=== PATIENT | male | born 1930 | race Caucasian/White ===

== ENCOUNTER 2016-06-09 17:50 | Inpatient (IN) | payer MEDICARE, OTHER ==
[2016-06-09] MEDS ORDERED: Sodium Chloride 0.9% 10 ML Syringe FLUSH PRN (18:06)
[2016-06-09] MEDS ORDERED: Albuterol/Ipratropium 3.0-0.5 MG/3 ML Neb Soln NEB ONE (18:08)
[2016-06-09] MEDS ORDERED: Acetaminophen 325 MG Tab PO ONE (18:09)
[2016-06-09] MEDS: Sodium Chloride 0.9% 1,000 ML IV SCH (18:20)
[2016-06-09] MEDS ORDERED: Levofloxacin/Dextrose 5%-Water 750 MG in Premix Bag 1 BAG IV ONE (19:07)
--- NOTE | 2016-06-09 20:29 | EDM.PDOC ---
ED HISTORY OF PRESENT ILLNESS - General Chief Complaint: Fever Stated Complaint: POST EGD, CONVULSIONS Time Seen by Provider: 06/09/16 18:02 Source of Information: Reports: Patient, Family History Limitations: Reports: No limitations - History of Present Illness INITIAL COMMENTS - FREE TEXT/NARRATIVE: The patient had a bronchoscopy done today at [facility] and he was on his way home. He developed rigors just 10 minutes out of town and shortness of breath with a cough. He said a similar thing happened after a colonoscopy a few years ago. He had a spot on his lung that they were checking out. He has no chest pain, abdominal pain, nausea or vomiting. Timing/Duration: Reports: Minutes: Severity: moderate Improves with: Reports: None Worsens with: Reports: None Associated Symptoms (General): Reports: cough, fever/chills, shortness of breath. Denies: nausea/vomiting - Related Data Allergies/ADRs: Allergies Allergy/AdvReac Type Severity Reaction Status Date / Time ramipril [From Altace] Allergy Cannot Verified 06/09/16 18:00 Remember ticagrelor [From BRILINTA] Allergy Cannot Verified 06/09/16 18:00 Remember Home Meds: Home Meds Armodafinil [Nuvigil] 250 mg PO DAILY 09/02/15 [History] Furosemide [Lasix] 40 mg PO DAILY 09/02/15 [History] Isosorbide Mononitrate [Isosorbide Mononitrate ER] 60 mg PO DAILY 09/02/15 [ History] Levothyroxine [Synthroid] 50 mcg PO ACBREAKFAST 09/02/15 [History] Metoprolol Succinate [Toprol XL] 1 tab PO DAILY 09/02/15 [History] Pravastatin Sodium [Pravachol] 20 mg PO BEDTIME 09/02/15 [History] oxyCODONE HCl/Acetaminophen [Percocet 10-325 mg Tablet] 1 - 2 each PO Q4H PRN # 36 tablet 09/02/15 [Rx] Apixaban [Eliquis] 2.5 mg PO DAILY 10/11/15 [History] Aspirin [Halfprin] 81 mg PO DAILY 10/11/15 [History] FLUoxetine [PROzac] 20 mg PO DAILY 10/11/15 [History] Nitroglycerin 0.4 mg PO BID PRN 10/11/15 [History] amLODIPine [Norvasc] 5 mg PO DAILY 10/11/15 [History] glipiZIDE [Glucotrol] 5 mg PO DAILY 10/11/15 [History] Past Medical History HEENT History: Reports: Hard of hearing Other HEENT History: Wears hearing aids Cardiovascular History: Reports: High cholesterol, Hypertension, [place] Respiratory History: Reports: Sleep apnea Other Respiratory History: Wears CPAP at night Gastrointestinal History: Reports: GERD Genitourinary History: Reports: BPH, Chronic renal insuffiency Other Genitourinary History: pt has 1 kidney Musculoskeletal History: Reports: Osteoarthritis Endocrine/Metabolic History: Reports: Diabetes, type II Oncologic (Cancer) History: 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, Renal - Past Surgical History HEENT Surgical History: Reports: Cataract surgery, Tonsillectomy Cardiovascular Surgical History: Reports: Coronary artery stent Other Cardiovascular Surgeries/Procedures: Stents x4 GI Surgical History: 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, Colostomy, Hernia, abdominal Male Surgical History: Reports: Nephrectomy Neurological Surgical History: Reports: Lumbar spine Musculoskeletal Surgical History: Reports: Knee replacement, Shoulder surgery Other Musculoskeletal Surgeries/Procedures:: Bilateral rotator cuff repair, bilateral knees replaced, back surgery twice Social & Family History - Family History Family Medical History: Noncontributory - Tobacco Use Smoking Status *Q: Former Smoker Years of Tobacco use: 30 Packs/Tins Daily: 1 Used Tobacco, but Quit: Yes Month Tobacco Last Used: 1995 Second Hand Smoke Exposure: No - Caffeine Use Caffeine Use: Reports: Coffee, Soda - Recreational Drug Use Recreational Drug Use: No - Living Situation & Occupation Living situation: Reports: , with spouse Occupation: retired ED ROS GENERAL - Review of Systems Review Of Systems: See Below Constitutional: Reports: fever, chills HEENT: Reports: No symptoms Respiratory: Reports: shortness of breath, cough Cardiovascular: Reports: No symptoms Endocrine: Reports: no symptoms GI/Abdominal: Reports: No symptoms : Reports: no symptoms Musculoskeletal: Reports: no symptoms Skin: Reports: no symptoms Neurological: Reports: no symptoms ED EXAM, GENERAL - Physical Exam Exam: See Below Exam Limited By: No limitations General Appearance: alert, no apparent distress Ears: normal external exam Nose: normal inspection Head: atraumatic, normocephalic Neck: normal inspection Respiratory/Chest: no respiratory distress, rhonchi (mild), wheezing (Moderate) Cardiovascular: regular rate, rhythm, no edema, no murmur GI/Abdominal: soft, non tender, no organomegaly Back Exam: normal inspection Extremities: normal inspection Neurological: alert, oriented, no motor/sensory deficits Course - Vital Signs Last Recorded V/S: Last Vital Signs Temp 100 F 06/09/16 18:21 Pulse 95 06/09/16 18:00 Resp 28 H 06/09/16 18:00 BP 185/135 H 06/09/16 18:00 Pulse Ox 90 L 06/09/16 18:00 - Orders/Labs/Meds Orders: Active Orders 24 hr Category Date Time Status Cardiac Monitoring [RC] . DIRECTED Care 06/09/16 18:07 Active Oxygen Therapy [RC] PRN Care 06/09/16 18:07 Active Peripheral IV Care [RC] . DIRECTED Care 06/09/16 18:07 Active RT Aerosol Therapy [RC] ASDIRECTED Care 06/09/16 18:09 Active Chest 1V Frontal [CR] Stat Exams 06/09/16 18:07 Taken CULTURE BLOOD [BC] Stat Lab 06/09/16 18:30 Received CULTURE BLOOD [BC] Stat Lab 06/09/16 18:40 Received UA W/MICROSCOPIC [URIN] Stat Lab 06/09/16 19:58 Ordered Levofloxacin/Dextrose 5%-Water [Levaquin in D5W 750 MG/ Med 06/09/16 19:07 Active 150 ML] 750 mg Premix Bag 1 bag IV ONETIME Sodium Chloride 0.9% [Normal Saline] 1,000 ml Med 06/09/16 18:15 Active IV ASDIRECTED Sodium Chloride 0.9% [Saline Flush] Med 06/09/16 18:06 Active 10 ml FLUSH ASDIRECTED PRN Blood Culture x2 Reflex Set [OM.PC] Stat Oth 06/09/16 18:08 Ordered Peripheral IV Insertion Adult [OM.PC] Stat Oth 06/09/16 18:06 Ordered Medication Orders Sodium Chloride (Normal Saline) 1,000 mls @ 125 mls/hr IV ASDIRECTED [facility] Last Admin: 06/09/16 18:20 Dose: 125 mls/hr Levofloxacin/Dextrose 750 mg/ (Premix) 150 mls @ 100 mls/hr IV ONETIME ONE Stop: 06/09/16 20:36 Last Admin: 06/09/16 19:14 Dose: 100 mls/hr Sodium Chloride (Saline Flush) 10 ml FLUSH ASDIRECTED PRN PRN Reason: Keep Vein Open Last Admin: 06/09/16 18:23 Dose: 10 ml Labs: Laboratory Tests 06/09/16 06/09/16 06/09/16 Range/Units 18:30 18:50 19:35 WBC 12.43 H (4.23-9.07) K/mm3 RBC 3.10 L (4.63-6.08) M/mm3 Hgb 9.8 L (13.7-17.5) gm/L Hct 30.0 L (40.1-51.0) % MCV 96.8 H (79.0-92.2) fl MCH 31.6 (25.7-32.2) pg MCHC 32.7 (32.2-35.5) g/dl RDW Std Deviation 47.3 H (35.1-43.9) fL Plt Count 152 L (163-337) K/mm3 MPV 10.6 (9.4-12.3) fl Neut % (Auto) 76.0 H (34.0-67.9) % Lymph % (Auto) 13.8 L (21.8-53.1) % [place] % (Auto) 7.9 (5.3-12.2) % Eos % (Auto) 1.9 (0.8-7.0) Baso % (Auto) 0.2 (0.1-1.2) % Neut # 9.44 H (1.78-5.38) K/mm3 Lymph # 1.72 (1.32-3.57) K/mm3 [place] # 0.98 H (0.30-0.82) K/mm3 Eos # 0.24 (0.04-0.54) K/mm3 Baso # 0.02 (0.01-0.08) K/mm3 Sodium 141 (136-145) mEq/L Potassium 5.5 H (3.5-5.1) mEq/L Chloride 109 H (98-107) mEq/L Carbon Dioxide 19 L (21-32) mEq/L Anion Gap 18.5 H (5-15) BUN 53 H (7-18) mg/dL Creatinine 5.8 H (0.7-1.3) mg/dL Est Cr Clr Drug Dosing 9.65 mL/min Estimated GFR (MDRD) 9 (>60) mL/min BUN/Creatinine Ratio 9.1 L (14-18) Glucose 119 H (83-115) mg/dL Lactic Acid 1.4 (0.4-2.0) mmol/L Calcium 7.4 L (8.5-10.1) mg/dL Total Bilirubin 0.2 (0.2-1.0) mg/dL AST 16 (15-37) U/L ALT 17 (16-63) U/L Alkaline Phosphatase 191 H (46-116) U/L Total Protein 7.0 (6.4-8.2) g/dl Albumin 3.0 L (3.4-5.0) g/dl Globulin 4.0 gm/dL Albumin/Globulin Ratio 0.8 L (1-2) Meds: Medications Generic Name Dose Route Start Last Admin Trade Name Freq PRN Reason Stop Dose Admin Sodium Chloride 1,000 mls @ 125 mls/hr 06/09/16 18:15 06/09/16 18:20 Normal Saline IV 125 mls/hr ASDIRECTED STACEY Administration Levofloxacin/Dextrose 750 mg/ 150 mls @ 100 mls/hr 06/09/16 19:07 06/09/16 19 :14 Premix IV 06/09/16 20:36 100 mls/hr ONETIME ONE Administration Sodium Chloride 10 ml 06/09/16 18:06 06/09/16 18:23 Saline Flush FLUSH 10 ml ASDIRECTED PRN Administration Keep Vein Open Discontinued Medications Generic Name Dose Route Start Last Admin Trade Name Freq PRN Reason Stop Dose Admin Acetaminophen 975 mg 06/09/16 18:09 06/09/16 18:21 Tylenol PO 06/09/16 18:10 975 mg NOW ONE Administration Albuterol/Ipratropium 3 ml 06/09/16 18:08 06/09/16 18:36 Duoneb 3.0-0.5 Mg/3 Ml NEB 06/09/16 18:09 3 ml ONETIME ONE Administration - Re-Assessments/Exams Free Text/Narrative Re-Assessment/Exam: 06/09/16 20:34 I ordered oxygen an IV, CXR, labs and blood cultures. His CXR shows a left sided infiltrate. His WBC was 12.43. His Hgb was elevated at 9.8. His creatinine was elevated to 5.8. He normally runs at 4. His lactic acid was normal. I ordered levaquin 750mg IV after the blood cultures. I talked to the patient about admission and if he wanted to go to [place]. He would rather be here. I explained if his kidney function got worse he may need to go to [place] and he and his family understood. I also asked his code status and he wanted everything done. Departure - Departure Time of Disposition: 20:40 Disposition: Admitted As Inpatient 68 Condition: poor Clinical Impression: Kidney disease Pneumonia Qualifiers: Pneumonia type: due to unspecified organism Laterality: left Lung location: upper lobe of lung Qualified Code(s): J18.1 - Lobar pneumonia, unspecified organism Anemia Qualifiers: Anemia type: unspecified type Qualified Code(s): D64.9 - Anemia, unspecified Forms: ED Department Discharge - My Orders Last 24 Hours: My Active Orders 06/09/16 18:06 Sodium Chloride 0.9% [Saline Flush] 10 ml FLUSH ASDIRECTED PRN Peripheral IV Insertion Adult [OM.PC] Stat 06/09/16 18:07 Cardiac Monitoring [RC] . DIRECTED Oxygen Therapy [RC] PRN Peripheral IV Care [RC] . DIRECTED Chest 1V Frontal [CR] Stat 06/09/16 18:08 Blood Culture x2 Reflex Set [OM.PC] Stat 06/09/16 18:09 RT Aerosol Therapy [RC] ASDIRECTED 06/09/16 18:15 Sodium Chloride 0.9% [Normal Saline] 1,000 ml IV ASDIRECTED 06/09/16 18:30 CULTURE BLOOD [BC] Stat 06/09/16 18:40 CULTURE BLOOD [BC] Stat 06/09/16 19:07 Levofloxacin/Dextrose 5%-Water [Levaquin in D5W 750 MG/150 ML] 750 mg Premix Bag 1 bag IV ONETIME 06/09/16 19:58 UA W/MICROSCOPIC [URIN] Stat - Assessment/Plan Last 24 Hours: My Active Orders 06/09/16 18:06 Sodium Chloride 0.9% [Saline Flush] 10 ml FLUSH ASDIRECTED PRN Peripheral IV Insertion Adult [OM.PC] Stat 06/09/16 18:07 Cardiac Monitoring [RC] . DIRECTED Oxygen Therapy [RC] PRN Peripheral IV Care [RC] . DIRECTED Chest 1V Frontal [CR] Stat 06/09/16 18:08 Blood Culture x2 Reflex Set [OM.PC] Stat 06/09/16 18:09 RT Aerosol Therapy [RC] ASDIRECTED 06/09/16 18:15 Sodium Chloride 0.9% [Normal Saline] 1,000 ml IV ASDIRECTED 06/09/16 18:30 CULTURE BLOOD [BC] Stat 06/09/16 18:40 CULTURE BLOOD [BC] Stat 06/09/16 19:07 Levofloxacin/Dextrose 5%-Water [Levaquin in D5W 750 MG/150 ML] 750 mg Premix Bag 1 bag IV ONETIME 06/09/16 19:58 UA W/MICROSCOPIC [URIN] Stat
[2016-06-09] MEDS ORDERED: Acetaminophen/oxyCODONE 325-5 MG Tab PO ONE (20:35)
--- NOTE | 2016-06-09 21:16 | PCM.HP ---
H&P History of Present Illness - General Date of Service: 06/09/16 Admit Problem/Dx: Febrile Illness Source of Information: Patient, Family, Old records, Provider, RN notes reviewed History Limitations: Reports: No limitations - History of Present Illness Initial Comments - Free Text/Narative: This is an 85 yo obese white male with past medical hx/o HTN, HLD, [place], CAD S/p Stent x 4, DARINEL on CPAP, GERD, BPH, CKD, One functional Kidney, OA/DJD, DM2 and Hx/o colon and renal cancer who recently completed bronchoscopy in [facility] and on his way home he developed shills associated with shortness of breath and cough. Patient reports similar presentation a few years ago when he had his colonoscopy. Patient denies any chest or abdominal pain. His initial work up in ED shows a CBC remarkable for WBC 12.43, Hgb 9.8, Hct 30 , and platelet 152. His chemistry is significant for K 5.5, Cl 109, CO2 19, AG 18.5, BUN 53, Cr 5.8, BS 119, Ca 7.4, alk phos 191 and albumin 3. LA is 1.4, CKMB 1.8 and Troponin 0.024. His UA was negative for UTI but 3+ for protein. His CXR shows chronic increased lung markings. Patient was referred to me for PNA and WESLEY. He is full code. - Related Data Allergies/Adverse Reactions: Allergies Allergy/AdvReac Type Severity Reaction Status Date / Time ramipril [From Altace] Allergy Cannot Verified 06/09/16 18:00 Remember ticagrelor [From BRILINTA] Allergy Cannot Verified 06/09/16 18:00 Remember Home Medications: Home Meds Armodafinil [Nuvigil] 250 mg PO DAILY 09/02/15 [History] Furosemide [Lasix] 40 mg PO DAILY 09/02/15 [History] Isosorbide Mononitrate [Isosorbide Mononitrate ER] 60 mg PO DAILY 09/02/15 [ History] Levothyroxine [Synthroid] 50 mcg PO ACBREAKFAST 09/02/15 [History] Metoprolol Succinate [Toprol XL] 1 tab PO DAILY 09/02/15 [History] Pravastatin Sodium [Pravachol] 20 mg PO BEDTIME 09/02/15 [History] oxyCODONE HCl/Acetaminophen [Percocet 10-325 mg Tablet] 1 - 2 each PO Q4H PRN # 36 tablet 09/02/15 [Rx] Apixaban [Eliquis] 2.5 mg PO DAILY 10/11/15 [History] Aspirin [Halfprin] 81 mg PO DAILY 10/11/15 [History] FLUoxetine [PROzac] 20 mg PO DAILY 10/11/15 [History] Nitroglycerin 0.4 mg PO BID PRN 10/11/15 [History] amLODIPine [Norvasc] 5 mg PO DAILY 10/11/15 [History] glipiZIDE [Glucotrol] 5 mg PO DAILY 10/11/15 [History] Albuterol/Ipratropium [DuoNeb 3.0-0.5 MG/3 ML] 1 inhalation INH Q4H PRN [History] Ferrous Sulfate 325 mg PO DAILY 06/10/16 [History] Past Medical History HEENT History: Reports: Hard of hearing Other HEENT History: Wears hearing aids Cardiovascular History: Reports: High cholesterol, Hypertension, [place] Respiratory History: Reports: Sleep apnea Other Respiratory History: Wears CPAP at night Gastrointestinal History: Reports: GERD Genitourinary History: Reports: BPH, Chronic renal insuffiency Other Genitourinary History: pt has 1 kidney Musculoskeletal History: Reports: Osteoarthritis Endocrine/Metabolic History: Reports: Diabetes, type II Oncologic (Cancer) History: 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, Renal - Past Surgical History HEENT Surgical History: Reports: Cataract surgery, Tonsillectomy Cardiovascular Surgical History: Reports: Coronary artery stent Other Cardiovascular Surgeries/Procedures: Stents x4 GI Surgical History: 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, Colostomy, Hernia, abdominal Male Surgical History: Reports: Nephrectomy Neurological Surgical History: Reports: Lumbar spine Musculoskeletal Surgical History: Reports: Knee replacement, Shoulder surgery Other Musculoskeletal Surgeries/Procedures:: Bilateral rotator cuff repair, bilateral knees replaced, back surgery twice Social & Family History - Family History Family Medical History: Noncontributory - Tobacco Use Smoking Status *Q: Former Smoker Years of Tobacco use: 30 Packs/Tins Daily: 1 Used Tobacco, but Quit: Yes Month Tobacco Last Used: 1995 Second Hand Smoke Exposure: No - Caffeine Use Caffeine Use: Reports: Coffee, Soda - Recreational Drug Use Recreational Drug Use: No - Living Situation & Occupation Living situation: Reports: , with spouse Occupation: retired H&P Review of Systems - Review of Systems: Review Of Systems: See Below General: Denies: fever, chills HEENT: Reports: no symptoms Pulmonary: Reports: shortness of breath, cough Cardiovascular: Denies: chest pain, edema Gastrointestinal: Denies: Abdominal pain, Nausea, Vomiting Genitourinary: Reports: no symptoms Musculoskeletal: Reports: no symptoms Skin: Denies: cyanosis, pruritis, rash Psychiatric: Denies: depression, anxiety, hallucinations Neurological: Denies: confusion, weakness Hematologic/Lymphatic: Reports: no symptoms Immunologic: Reports: no symptoms Exam - Exam Exam: See Below - Vital Signs Vital Signs: Last Vital Signs Temp 37.7 C 06/09/16 18:21 Pulse 95 06/09/16 18:00 Resp 28 H 06/09/16 18:00 BP 185/135 H 06/09/16 18:00 Pulse Ox 90 L 06/09/16 18:00 Weight: 113.398 kg - Exam General: alert, oriented, cooperative, mild distress, other (Obese) HEENT: Conjunctiva clear, EACs clear, EOMI, Hearing intact, Mucosa moist & pink , Nares patent, Normal nasal septum, Posterior pharynx clear, Pupils equal, Pupils reactive Neck: supple, trachea midline, 2+ carotid pulse wo bruit, full range of motion, other (short and thick) Lungs: Normal respiratory effort, Decreased breath sounds, Rhonchi, Wheezing Cardiovascular: regular rate, regular rhythm Abdomen: normal bowel sounds, soft. No: organomegaly (Male) Exam: Deferred Rectal (Males) Exam: Deferred Back Exam: normal inspection, decreased range of motion Extremities: normal inspection, normal pulses. No: clubbing, cyanosis, calf tenderness, edema Peripheral Pulses: 2+: dorsalis pedis (L), dorsalis pedis (R) Skin: warm, dry, intact Neuro Extensive - Mental Status: oriented x3, normal cognition, memory intact Neuro Extensive - Motor, Sensory, Reflexes: CN II-XII intact Psychiatric: alert, normal affect, normal mood - Patient Data Result Diagrams: 06/10/16 05:58 06/10/16 05:58 *Q Meaningful Use (ADM) - VTE *Q VTE Criteria *Q: - Stroke *Q Stroke Criteria *Q: - AMI *Q AMI Criteria *Q: Problem List Initiated/Reviewed/Updated: Yes Orders Last 24hrs: Medication Orders Sodium Chloride (Normal Saline) 1,000 mls @ 125 mls/hr IV ASDIRECTED STACEY Last Admin: 06/09/16 18:20 Dose: 125 mls/hr Sodium Chloride (Saline Flush) 10 ml FLUSH ASDIRECTED PRN PRN Reason: Keep Vein Open Last Admin: 06/09/16 18:23 Dose: 10 ml Assessment/Plan Comment:: Assessment/Plan: Acute: Post Bronchoscopy Parenchymal Infiltrate (PNA) - Common in Post-Bronch patient - He just had it done today - CXR shows chronic lung markings - Received IV Levaquin in ED - Will add Zosyn IV q6 for pharmacy to renaly dose - Follow up CXR - Supplemental O2 and Bronchodilators - I am hopeful this will be transient, could not appreciate real pneumonia Fever with Leukocytosis - WBC 12.43 - Likely 2/2 Above - Treat above Anemia of Chronic Disease - Hgb 9.8 - No active bleed - Will monitor Acute on Chronic Kidney Disease - Baseline cr in the 4s, now at 5.8, he is now at stage V - IV Hydration - Monitor renal function - If he gets worse, transfer to [place] Anion Gap-Metabolic Acidosis - 2/2 WESLEY - Treat underlying cause Chronic: HTN HLD CAD S/p stents x 4 DARINEL on CPAP GERD BPH CKD One functional kidney DM2 OA and hx/o Colon and Renal Cancer Obesity with BMI 36 Plan: Admit to Med-Surg Routine AM Labs Resume Some Home Meds PT/OT consult Dietary consult for weight management SW/CM for d/c planning Code status: 1 Additional orders as above Family was informed about our limited resources here in [place]. They were advised he may likely be shipped out if his renal function gets worse.
[2016-06-10] MEDS ORDERED: Promethazine 12.5 MG in Sodium Chloride 0.9% 50 ML IV PRN (01:57)
[2016-06-10] MEDS ORDERED: Bisacodyl 5 MG Tab PO PRN (01:57)
[2016-06-10] MEDS ORDERED: HYDROmorphone 0.5 MG/0.5 ML Syringe IVPUSH PRN (01:57)
[2016-06-10] MEDS ORDERED: Albuterol/Ipratropium 3.0-0.5 MG/3 ML Neb Soln NEB PRN (01:57)
[2016-06-10] MEDS ORDERED: Acetaminophen 325 MG Tab PO PRN (01:57)
[2016-06-10] MEDS ORDERED: Polyethylene Glycol 3350 Powder 17 GM Packet PO PRN (01:57)
[2016-06-10] MEDS ORDERED: Ondansetron 4 MG/2 ML SDV IV PRN (01:57)
[2016-06-10] MEDS ORDERED: Acetaminophen/HYDROcodone 325-5 MG Tab PO PRN (01:57)
[2016-06-10] MEDS ORDERED: Temazepam 15 MG Cap PO PRN (01:57)
[2016-06-10] MEDS ORDERED: OXYCODONE HCL PO PRN (02:02)
[2016-06-10] MEDS ORDERED: ACETAMINOPHEN PO PRN (02:02)
[2016-06-10] MEDS: Sodium Chloride 0.9% 1,000 ML IV SCH ×2 (02:07→18:56)
[2016-06-10] MEDS ORDERED: Piperacillin/Tazobactam 4.5 GM in Sodium Chloride 0.9% 100 ML IV ONE (02:15)
[2016-06-10] MEDS ORDERED: Levofloxacin/Dextrose 5%-Water 750 MG in Premix Bag 1 BAG IV SCH (02:15)
[2016-06-10] MEDS ORDERED: Acetaminophen/oxyCODONE 325-5 MG Tab PO PRN (02:19)
[2016-06-10] MEDS ORDERED: oxyCODONE 5 MG Tab PO PRN (02:21)
[2016-06-10] MEDS: LORazepam 2 MG/ML MDV IV PRN ×3 (02:41→20:08)
[2016-06-10] MEDS ORDERED: Nitroglycerin Lingual Spray 4.9 GM Canister TRLING PRN (02:45)
[2016-06-10] MEDS: Levothyroxine 50 MCG Tab PO SCH (06:43)
--- NOTE | 2016-06-10 06:59 | CR ---
Chest: Portable view of the chest is obtained. Comparison: Previous chest x-ray of 10/28/15. Heart size mildly prominent. Chronic increased lung markings are noted. Possible increased density within the left upper chest seen from prior study as well as within the right lower chest which may represent atelectasis versus several early areas of pneumonia. Lungs otherwise are clear. Bony structures are grossly intact. Impression: 1. Chronic increased lung markings. Possible increased density within the left upper chest and right lower chest from prior chest x-ray either due to atelectasis or early areas of pneumonia if patient has infectious symptoms. Diagnostic code #3
[2016-06-10] MEDS: glipiZIDE 5 MG Tab PO SCH (08:59)
[2016-06-10] MEDS: Metoprolol Succinate 25 MG Tab.ER PO SCH (08:59)
[2016-06-10] MEDS: Ferrous Sulfate 325 MG Tab PO SCH (09:00)
[2016-06-10] MEDS: amLODIPine 5 MG Tab PO SCH (09:00)
[2016-06-10] MEDS ORDERED: Apixaban 2.5 MG Tab PO SCH (09:00)
[2016-06-10] MEDS: Isosorbide Mononitrate 60 MG Tab.ER PO SCH (09:00)
[2016-06-10] MEDS: FLUoxetine 20 MG Cap PO SCH (09:00)
[2016-06-10] MEDS: Aspirin 81 MG Tab.EC PO SCH (09:00)
[2016-06-10] MEDS: Armodafinil [Nuvigil] 250 MG PO SCH (09:01)
--- NOTE | 2016-06-10 09:33 | PCM.PN ---
- General Info Date of Service: 06/10/16 Admission Dx/Problem (Free Text): Febrile Illness Subjective Update: Follow Up Functional Status: Reports: pain controlled, tolerating diet, urinating, new symptoms (did not sleep well overnight) - Review of Systems General: Denies: fever, chills HEENT: Reports: no symptoms Pulmonary: Reports: shortness of breath Cardiovascular: Denies: chest pain Gastrointestinal: Denies: Abdominal pain, Nausea, Vomiting Genitourinary: Reports: no symptoms Musculoskeletal: Reports: no symptoms Skin: Reports: no symptoms Neurological: Denies: confusion, difficulty walking, weakness Psychiatric: Denies: depression, anxiety, hallucinations Systems Review Comment:: No acute issues. He feels better. His WBC is now normal. K is now at 5.1 and Cr is about the same at 5.7. CRP is 4.4. He would like to sleep more today. - Patient Data Vitals - most recent: Last Vital Signs Temp 36.7 C 06/10/16 07:43 Pulse 76 06/10/16 08:59 Resp 24 H 06/10/16 07:43 BP 128/68 06/10/16 09:00 Pulse Ox 97 06/10/16 07:43 Weight - most recent: 113.398 kg I&O - last 24 hours: Intake & Output 06/09/16 06/10/16 06/10/16 22:59 06:59 14:59 Intake Total 1397 Output Total 550 Balance 847 Lab Results last 24 hrs: Laboratory Results - last 24 hr 06/09/16 06/09/16 06/09/16 Range/Units 21:25 23:18 23:18 WBC (4.23-9.07) K/mm3 RBC (4.63-6.08) M/mm3 Hgb (13.7-17.5) gm/L Hct (40.1-51.0) % MCV (79.0-92.2) fl MCH (25.7-32.2) pg MCHC (32.2-35.5) g/dl RDW Std Deviation (35.1-43.9) fL Plt Count (163-337) K/mm3 MPV (9.4-12.3) fl Neut % (Auto) (34.0-67.9) % Lymph % (Auto) (21.8-53.1) % [place] % (Auto) (5.3-12.2) % Eos % (Auto) (0.8-7.0) Baso % (Auto) (0.1-1.2) % Neut # (1.78-5.38) K/mm3 Lymph # (1.32-3.57) K/mm3 [place] # (0.30-0.82) K/mm3 Eos # (0.04-0.54) K/mm3 Baso # (0.01-0.08) K/mm3 Manual Slide Review Sodium (136-145) mEq/L Potassium (3.5-5.1) mEq/L Chloride (98-107) mEq/L Carbon Dioxide (21-32) mEq/L Anion Gap (5-15) BUN (7-18) mg/dL Creatinine (0.7-1.3) mg/dL Est Cr Clr Drug Dosing mL/min Estimated GFR (MDRD) (>60) mL/min BUN/Creatinine Ratio (14-18) Glucose (83-115) mg/dL POC Glucose 92 (83-110) mg/dL Calcium (8.5-10.1) mg/dL Magnesium (1.8-2.4) mg/dl CK-MB (CK-2) 1.8 (0-3.6) ng/ml Troponin I 0.024 (0.00-0.056) ng/mL C-Reactive Protein (<1.0) mg/dL 06/10/16 06/10/16 Range/Units 05:58 05:58 WBC 8.41 (4.23-9.07) K/mm3 RBC 2.45 L (4.63-6.08) M/mm3 Hgb 7.8 L (13.7-17.5) gm/L Hct 24.0 L (40.1-51.0) % MCV 98.0 H (79.0-92.2) fl MCH 31.8 (25.7-32.2) pg MCHC 32.5 (32.2-35.5) g/dl RDW Std Deviation 46.9 H (35.1-43.9) fL Plt Count 121 L (163-337) K/mm3 MPV 10.3 (9.4-12.3) fl Neut % (Auto) 71.6 H (34.0-67.9) % Lymph % (Auto) 15.1 L (21.8-53.1) % [place] % (Auto) 11.5 (5.3-12.2) % Eos % (Auto) 1.4 (0.8-7.0) Baso % (Auto) 0.2 (0.1-1.2) % Neut # 6.01 H (1.78-5.38) K/mm3 Lymph # 1.27 L (1.32-3.57) K/mm3 [place] # 0.97 H (0.30-0.82) K/mm3 Eos # 0.12 (0.04-0.54) K/mm3 Baso # 0.02 (0.01-0.08) K/mm3 Manual Slide Review Abnormal smear Sodium 140 (136-145) mEq/L Potassium 5.1 (3.5-5.1) mEq/L Chloride 109 H (98-107) mEq/L Carbon Dioxide 18 L (21-32) mEq/L Anion Gap 18.1 H (5-15) BUN 49 H (7-18) mg/dL Creatinine 5.7 H (0.7-1.3) mg/dL Est Cr Clr Drug Dosing 9.82 mL/min Estimated GFR (MDRD) 10 (>60) mL/min BUN/Creatinine Ratio 8.6 L (14-18) Glucose 77 L (83-115) mg/dL POC Glucose (83-110) mg/dL Calcium 6.7 L (8.5-10.1) mg/dL Magnesium 1.2 L (1.8-2.4) mg/dl CK-MB (CK-2) (0-3.6) ng/ml Troponin I (0.00-0.056) ng/mL C-Reactive Protein 4.4 H* (<1.0) mg/dL Rl Results last 24 hrs: Microbiology 06/10/16 05:25 Influenza Type A Antigen Screen - Final Nasal, Unspecified NEGATIVE INFLUENZA A VIRUS AG Influenza Type B Antigen Screen - Final NEGATIVE INFLUENZA B VIRUS AG Med Orders - Current: Current Medications Acetaminophen (Tylenol) 650 mg PO Q4H PRN PRN Reason: Pain (Mild 1-3)/fever Acetaminophen/Hydrocodone Bitart ([place] 325-5 Mg) 1 tab PO Q4H PRN PRN Reason: Pain (moderate 4-6) Albuterol/Ipratropium (Duoneb 3.0-0.5 Mg/3 Ml) 3 ml NEB Q4H PRN PRN Reason: Shortness Of Breath/wheezing Amlodipine Besylate (Norvasc) 5 mg PO DAILY [facility] Last Admin: 06/10/16 09:00 Dose: 5 mg Apixaban (Eliquis) 2.5 mg PO DAILY [facility] Aspirin (Halfprin) 81 mg PO DAILY [facility] Last Admin: 06/10/16 09:00 Dose: 81 mg Bisacodyl (Dulcolax) 5 mg PO DAILY PRN PRN Reason: Constipation Ferrous Sulfate (Ferrous Sulfate) 325 mg PO DAILY [facility] Last Admin: 06/10/16 09:00 Dose: 325 mg Fluoxetine HCl (Prozac) 20 mg PO DAILY [facility] Last Admin: 06/10/16 09:00 Dose: 20 mg Glipizide (Glucotrol) 5 mg PO DAILY [facility] Last Admin: 06/10/16 08:59 Dose: 5 mg Hydromorphone HCl (Dilaudid) 0.25 mg IVPUSH Q2H PRN PRN Reason: Pain (severe 7-10) Sodium Chloride (Normal Saline) 1,000 mls @ 125 mls/hr IV ASDIRECTED [facility] Last Admin: 06/10/16 02:07 Dose: 125 mls/hr Promethazine HCl 12.5 mg/ (Sodium Chloride) 50.5 mls @ 100 mls/hr IV Q6H PRN PRN Reason: Nausea/Vomiting Piperacillin Sod/Tazobactam (Sod 4.5 gm/ Sodium Chloride) 100 mls @ 25 mls/hr IV Q12H [facility] Levofloxacin/Dextrose 500 mg/ (Premix) 100 mls @ 100 mls/hr IV Q48H [facility] Isosorbide Mononitrate (Imdur) 60 mg PO DAILY [facility] Last Admin: 06/10/16 09:00 Dose: 60 mg Levothyroxine Sodium (Synthroid) 50 mcg PO ACBREAKFAST [facility] Last Admin: 06/10/16 06:43 Dose: 50 mcg Lorazepam (Ativan) 0.5 mg IV Q6H PRN PRN Reason: Anxiety Last Admin: 06/10/16 02:41 Dose: 0.5 mg Metoprolol Succinate (Toprol Xl) 25 mg PO DAILY [facility] Last Admin: 06/10/16 08:59 Dose: 25 mg Nitroglycerin (Nitrolingual) 0 gm TRLING BID PRN PRN Reason: PAIN Ondansetron HCl (Zofran) 4 mg IV Q6H PRN PRN Reason: Nausea/Vomiting Oxycodone HCl (Oxycodone) 5 - 10 mg PO Q4H PRN PRN Reason: PAIN Oxycodone/Acetaminophen (Percocet 325-5 Mg) 1 - 2 tab PO Q4H PRN PRN Reason: PAIN Armodafinil [Nuvigil (] 250 Mg) 0 each PO DAILY [facility] Last Admin: 06/10/16 09:01 Dose: Not Given Polyethylene Glycol (Miralax) 17 gm PO DAILY PRN PRN Reason: Constipation Senna/Docusate Sodium (Senna Plus) 1 tab PO BID PRN PRN Reason: Constipation Simvastatin (Zocor) 10 mg PO BEDTIME [facility] Sodium Chloride (Saline Flush) 10 ml FLUSH ASDIRECTED PRN PRN Reason: Keep Vein Open Last Admin: 06/09/16 18:23 Dose: 10 ml Temazepam (Restoril) 7.5 mg PO BEDTIME PRN PRN Reason: Sleep Discontinued Medications Acetaminophen (Tylenol) 975 mg PO NOW ONE Stop: 06/09/16 18:10 Last Admin: 06/09/16 18:21 Dose: 975 mg Albuterol/Ipratropium (Duoneb 3.0-0.5 Mg/3 Ml) 3 ml NEB ONETIME ONE Stop: 06/09/16 18:09 Last Admin: 06/09/16 18:36 Dose: 3 ml Levofloxacin/Dextrose 750 mg/ (Premix) 150 mls @ 100 mls/hr IV ONETIME ONE Stop: 06/09/16 20:36 Last Admin: 06/09/16 19:14 Dose: 100 mls/hr Piperacillin Sod/Tazobactam (Sod 4.5 gm/ Sodium Chloride) 100 mls @ 200 mls/hr IV ONETIME ONE Stop: 06/10/16 02:44 Last Admin: 06/10/16 02:33 Dose: 200 mls/hr Non-Formulary Medication (Oxycodone Hcl/Acetaminophen) 1 - 2 each PO Q4H PRN PRN Reason: severe pain relief. Oxycodone/Acetaminophen (Percocet 325-5 Mg) 1 tab PO ONETIME ONE Stop: 06/09/16 20:36 Last Admin: 06/09/16 20:38 Dose: 1 tab - Exam Quality Assessment: supplemental oxygen General: alert, oriented, cooperative, no acute distress, other (Obese) HEENT: Pupils equal, Pupils reactive, EOMI, Mucous membr. moist/pink Neck: supple, trachea midline, no JVD, other (short and thick) Lungs: Rhonchi, Wheezing Cardiovascular: regular rate, regular rhythm Abdomen: bowel sounds present, soft, no tenderness, no distension, other (Obese) (Male) Exam: Deferred Back Exam: normal inspection, decreased range of motion Extremities: no edema, normal pulses, no tenderness/swelling, no clubbing, no cyanosis, no calf tenderness Peripheral Pulses: 2+: dorsalis pedis (L), dorsalis pedis (R) Skin: warm, dry, intact Neurological: no new focal deficit Psy/Mental Status: alert, normal affect, normal mood - Problem List Review Problem List Initiated/Reviewed/Updated: Yes - My Orders Last 24 Hours: My Active Orders 06/10/16 01:57 Height and Weight [RC] 04 Up With Assistance [RC] BID Up ad [place] [RC] BID Acetaminophen [Tylenol] 650 mg PO Q4H PRN Acetaminophen/HYDROcodone [[place] 325-5 MG] 1 tab PO Q4H PRN Albuterol/Ipratropium [DuoNeb 3.0-0.5 MG/3 ML] 3 ml NEB Q4H PRN Bisacodyl [Dulcolax] 5 mg PO DAILY PRN Docusate Sodium/Sennosides [Senna Plus] 1 tab PO BID PRN HYDROmorphone [Dilaudid] 0.25 mg IVPUSH Q2H PRN LORazepam [Ativan] 0.5 mg IV Q6H PRN Ondansetron [Zofran] 4 mg IV Q6H PRN Polyethylene Glycol 3350 [MiraLAX] 17 gm PO DAILY PRN Promethazine [Phenergan] 12.5 mg Sodium Chloride 0.9% [Normal Saline] 50 ml IV Q6H Temazepam [Restoril] 7.5 mg PO BEDTIME PRN Resuscitation Status Routine 06/10/16 01:58 Intake and Output [RC] 04,16 VTE/DVT Education [RC] PER UNIT ROUTINE Vital Signs [RC] Q4HR Sequential Compression Device [OM.PC] Per Unit Routine 06/10/16 01:59 Antiembolic Devices [RC] 10,06/10/16 02:00 Consult to Case Management [CONS] Routine Consult to Checker/Stocker [CONS] Routine OT Evaluation and Treatment [CONS] Routine PT Evaluation and Treatment [CONS] Routine Respiratory Care Assess and Treatment [CONS] Routine 06/10/16 02:19 Acetaminophen/oxyCODONE [Percocet 325-5 MG] 1 - 2 tab PO Q4H PRN 06/10/16 02:21 oxyCODONE 5 - 10 mg PO Q4H PRN 06/10/16 02:45 Nitroglycerin [Nitrolingual] 0 gm TRLING BID PRN 06/10/16 06:00 Levothyroxine [Synthroid] 50 mcg PO ACBREAKFAST 06/10/16 09:00 Apixaban [Eliquis] 2.5 mg PO DAILY Aspirin [Halfprin] 81 mg PO DAILY FLUoxetine [PROzac] 20 mg PO DAILY Ferrous Sulfate 325 mg PO DAILY Isosorbide Mononitrate [Imdur] 60 mg PO DAILY Metoprolol Succinate [Toprol XL] 25 mg PO DAILY Patient's Own Medication [Ptom] 0 each PO DAILY amLODIPine [Norvasc] 5 mg PO DAILY glipiZIDE [Glucotrol] 5 mg PO DAILY 06/10/16 14:00 Piperacillin/Tazobactam [Zosyn] 4.5 gm Sodium Chloride 0.9% [Normal Saline] 100 ml IV Q12H 06/10/16 21:00 Simvastatin [Zocor] 10 mg PO BEDTIME 06/10/16 Breakfast Consistent Carbohydrate Diet [DIET] 06/11/16 05:11 BASIC METABOLIC PANEL,BMP [CHEM] AM C-REACTIVE PROTEIN [CHEM] AM CBC WITH AUTO DIFF [HEME] AM MAGNESIUM [CHEM] AM 06/11/16 19:00 Levofloxacin/Dextrose 5%-Water [Levaquin in D5W 500 MG/100 ML] 500 mg Premix Bag 1 bag IV Q48H 06/12/16 05:11 BASIC METABOLIC PANEL,BMP [CHEM] AM C-REACTIVE PROTEIN [CHEM] AM CBC WITH AUTO DIFF [HEME] AM MAGNESIUM [CHEM] AM 06/13/16 05:11 BASIC METABOLIC PANEL,BMP [CHEM] AM C-REACTIVE PROTEIN [CHEM] AM CBC WITH AUTO DIFF [HEME] AM MAGNESIUM [CHEM] AM 06/14/16 05:11 BASIC METABOLIC PANEL,BMP [CHEM] AM C-REACTIVE PROTEIN [CHEM] AM CBC WITH AUTO DIFF [HEME] AM MAGNESIUM [CHEM] AM 06/15/16 05:11 BASIC METABOLIC PANEL,BMP [CHEM] AM C-REACTIVE PROTEIN [CHEM] AM CBC WITH AUTO DIFF [HEME] AM MAGNESIUM [CHEM] AM 06/16/16 05:11 C-REACTIVE PROTEIN [CHEM] AM - Plan Plan:: Assessment/Plan: Acute: Post Bronchoscopy Parenchymal Infiltrate/Inflammation - Common in Post-Bronch patient - He just had it done today - CXR shows chronic lung markings - Continue: IV Levaquin and Zosyn - Follow up CXR - Supplemental O2 and Bronchodilators Anemia of Chronic Disease - Hgb 9.8 ---> 7.8 (possibly hemodilution) - No active bleed - Will repeat lab this afternoon Acute on Chronic Kidney Disease - Baseline cr in the 4s, now at 5.8, he is now at stage V---> stable at 5.7 - IV Hydration - Stable renal function, no need to transfer him at this time Anion Gap-Metabolic Acidosis - 2/2 [place] - Treat underlying cause Resolved: S/p Fever with Leukocytosis - WBC 12.43 ---> 8.41 - Likely 2/2 Above - Treat above Chronic: HTN HLD CAD S/p stents x 4 DARINEL on CPAP GERD BPH CKD One functional kidney DM2 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
[2016-06-10] MEDS: Apixaban 5 MG Tab PO SCH (11:27)
[2016-06-10] MEDS: Temazepam 7.5 MG Cap PO PRN ×2 (12:40→20:08)
[2016-06-10] MEDS: Piperacillin/Tazobactam 4.5 GM in Sodium Chloride 0.9% 100 ML IV SCH ×2 (12:47→13:29)
[2016-06-10] MEDS: Simvastatin 10 MG Tab PO SCH (20:07)
[2016-06-10] MEDS ORDERED: Non-Formulary Medication 1 Each (Pravastatin Sodium 20 MG) PO SCH (21:00)
[2016-06-11] MEDS: Piperacillin/Tazobactam 4.5 GM in Sodium Chloride 0.9% 100 ML IV SCH ×2 (02:17→14:21)
[2016-06-11] MEDS: Levothyroxine 50 MCG Tab PO SCH (06:19)
--- NOTE | 2016-06-11 07:43 | PCM.PN ---
- General Info Date of Service: 06/11/16 Admission Dx/Problem (Free Text): Febrile Illness Subjective Update: Follow Up Functional Status: Reports: pain controlled, tolerating diet, ambulating, urinating. Denies: new symptoms - Review of Systems General: Denies: fever, weakness, fatigue, malaise HEENT: Reports: no symptoms Pulmonary: Denies: shortness of breath Cardiovascular: Denies: chest pain, palpitations, dyspnea on exertion, edema Gastrointestinal: Denies: Abdominal pain, Nausea, Vomiting Genitourinary: Reports: no symptoms Musculoskeletal: Reports: no symptoms Skin: Reports: no symptoms Neurological: Denies: confusion, dizziness, difficulty walking, weakness, gait disturbance Psychiatric: Denies: depression, anxiety, hallucinations Systems Review Comment:: No overnight issues. He feels pretty good. He slept okay. His Hgb is 7.9 this am. No active bleed. His K is now 5.3, Mg is 1.3 and Cr is now at 5.6. He has no new complaints. He is afebrile w/o leukocytosis. - Patient Data Vitals - most recent: Last Vital Signs Temp 36.6 C 06/11/16 03:38 Pulse 72 06/11/16 03:38 Resp 24 H 06/11/16 03:38 BP 172/84 H 06/11/16 03:38 Pulse Ox 97 06/11/16 03:38 Weight - most recent: 66.95 kg I&O - last 24 hours: Intake & Output 06/10/16 06/11/16 06/11/16 22:59 06:59 14:59 Intake Total 1850 1400 Output Total 1350 1950 Balance 500 -550 Lab Results last 24 hrs: Laboratory Results - last 24 hr 06/10/16 06/11/16 06/11/16 Range/Units 13:30 05:07 05:07 WBC 7.67 6.92 (4.23-9.07) K/mm3 RBC 2.48 L 2.48 L (4.63-6.08) M/mm3 Hgb 8.0 L 7.9 L (13.7-17.5) gm/L Hct 24.5 L 24.4 L (40.1-51.0) % MCV 98.8 H 98.4 H (79.0-92.2) fl MCH 32.3 H 31.9 (25.7-32.2) pg MCHC 32.7 32.4 (32.2-35.5) g/dl RDW Std Deviation 47.5 H 47.1 H (35.1-43.9) fL Plt Count 116 L 116 L (163-337) K/mm3 MPV 9.8 10.7 (9.4-12.3) fl Neut % (Auto) 69.7 H 67.4 (34.0-67.9) % Lymph % (Auto) 15.3 L 15.9 L (21.8-53.1) % [place] % (Auto) 12.5 H 13.2 H (5.3-12.2) % Eos % (Auto) 2.1 3.3 (0.8-7.0) Baso % (Auto) 0.3 0.1 (0.1-1.2) % Neut # 5.35 4.66 (1.78-5.38) K/mm3 Lymph # 1.17 L 1.10 L (1.32-3.57) K/mm3 [place] # 0.96 H 0.91 H (0.30-0.82) K/mm3 Eos # 0.16 0.23 (0.04-0.54) K/mm3 Baso # 0.02 0.01 (0.01-0.08) K/mm3 Manual Slide Review Abnormal smear Sodium 140 (136-145) mEq/L Potassium 5.3 H (3.5-5.1) mEq/L Chloride 110 H (98-107) mEq/L Carbon Dioxide 16 L (21-32) mEq/L Anion Gap 19.3 H (5-15) BUN 55 H (7-18) mg/dL Creatinine 5.6 H (0.7-1.3) mg/dL Est Cr Clr Drug Dosing 9.46 mL/min Estimated GFR (MDRD) 10 (>60) mL/min BUN/Creatinine Ratio 9.8 L (14-18) Glucose 71 L (83-115) mg/dL Calcium 7.0 L (8.5-10.1) mg/dL Magnesium 1.3 L (1.8-2.4) mg/dl C-Reactive Protein 8.7 H* (<1.0) mg/dL Rl Results last 24 hrs: Microbiology 06/10/16 05:25 Influenza Type A Antigen Screen - Final Nasal, Unspecified NEGATIVE INFLUENZA A VIRUS AG Influenza Type B Antigen Screen - Final NEGATIVE INFLUENZA B VIRUS AG Med Orders - Current: Current Medications Acetaminophen (Tylenol) 650 mg PO Q4H PRN PRN Reason: Pain (Mild 1-3)/fever Acetaminophen/Hydrocodone Bitart ([place] 325-5 Mg) 1 tab PO Q4H PRN PRN Reason: Pain (moderate 4-6) Albuterol/Ipratropium (Duoneb 3.0-0.5 Mg/3 Ml) 3 ml NEB Q4H PRN PRN Reason: Shortness Of Breath/wheezing Amlodipine Besylate (Norvasc) 5 mg PO DAILY [facility] Last Admin: 06/10/16 09:00 Dose: 5 mg Apixaban (Eliquis) 2.5 mg PO DAILY [facility] Last Admin: 06/10/16 11:27 Dose: 2.5 mg Aspirin (Halfprin) 81 mg PO DAILY [facility] Last Admin: 06/10/16 09:00 Dose: 81 mg Bisacodyl (Dulcolax) 5 mg PO DAILY PRN PRN Reason: Constipation Dexamethasone (Dexamethasone) 4 mg PO ONETIME ONE Stop: 06/11/16 07:42 Diphenhydramine HCl (Benadryl) 25 mg IVPUSH ONETIME ONE Stop: 06/11/16 07:41 Ferrous Sulfate (Ferrous Sulfate) 325 mg PO DAILY [facility] Last Admin: 06/10/16 09:00 Dose: 325 mg Fluoxetine HCl (Prozac) 20 mg PO DAILY [facility] Last Admin: 06/10/16 09:00 Dose: 20 mg Glipizide (Glucotrol) 5 mg PO DAILY [facility] Last Admin: 06/10/16 08:59 Dose: 5 mg Hydromorphone HCl (Dilaudid) 0.25 mg IVPUSH Q2H PRN PRN Reason: Pain (severe 7-10) Promethazine HCl 12.5 mg/ (Sodium Chloride) 50.5 mls @ 100 mls/hr IV Q6H PRN PRN Reason: Nausea/Vomiting Piperacillin Sod/Tazobactam (Sod 4.5 gm/ Sodium Chloride) 100 mls @ 25 mls/hr IV Q12H [facility] Last Admin: 06/11/16 02:17 Dose: 25 mls/hr Levofloxacin/Dextrose 500 mg/ (Premix) 100 mls @ 100 mls/hr IV Q48H [facility] Sodium Chloride (Normal Saline) 1,000 mls @ 50 mls/hr IV ASDIRECTED [facility] Last Admin: 06/10/16 18:56 Dose: 50 mls/hr Iron Sucrose 200 mg/ Sodium (Chloride) 260 mls @ 83 mls/hr IV ONETIME ONE Stop: 06/11/16 10:47 Isosorbide Mononitrate (Imdur) 60 mg PO DAILY [facility] Last Admin: 06/10/16 09:00 Dose: 60 mg Levothyroxine Sodium (Synthroid) 50 mcg PO ACBREAKFAST [facility] Last Admin: 06/11/16 06:19 Dose: 50 mcg Lorazepam (Ativan) 0.5 mg IV Q6H PRN PRN Reason: Anxiety Last Admin: 06/10/16 20:08 Dose: 0.5 mg Magnesium Sulfate (Pharmacy To Dose - Magnesium Replacement) 1 dose .XX ASDIRECTED [facility] Metoprolol Succinate (Toprol Xl) 25 mg PO DAILY [facility] Last Admin: 06/10/16 08:59 Dose: 25 mg Nitroglycerin (Nitrolingual) 0 gm TRLING BID PRN PRN Reason: PAIN Ondansetron HCl (Zofran) 4 mg IV Q6H PRN PRN Reason: Nausea/Vomiting Oxycodone HCl (Oxycodone) 5 - 10 mg PO Q4H PRN PRN Reason: PAIN Oxycodone/Acetaminophen (Percocet 325-5 Mg) 1 - 2 tab PO Q4H PRN PRN Reason: PAIN Armodafinil [Nuvigil (] 250 Mg) 0 each PO DAILY [facility] Last Admin: 06/10/16 09:01 Dose: Not Given Polyethylene Glycol (Miralax) 17 gm PO DAILY PRN PRN Reason: Constipation Potassium Chloride (Pharmacy To Dose - Potassium Replacement) 1 dose .XX ASDIRECTED [facility] Senna/Docusate Sodium (Senna Plus) 1 tab PO BID PRN PRN Reason: Constipation Simvastatin (Zocor) 10 mg PO BEDTIME [facility] Last Admin: 06/10/16 20:07 Dose: 10 mg Sodium Chloride (Saline Flush) 10 ml FLUSH ASDIRECTED PRN PRN Reason: Keep Vein Open Last Admin: 06/09/16 18:23 Dose: 10 ml Temazepam (Restoril) 7.5 mg PO BEDTIME PRN PRN Reason: Sleep Last Admin: 06/10/16 20:08 Dose: 7.5 mg Discontinued Medications Acetaminophen (Tylenol) 975 mg PO NOW ONE Stop: 06/09/16 18:10 Last Admin: 06/09/16 18:21 Dose: 975 mg Albuterol/Ipratropium (Duoneb 3.0-0.5 Mg/3 Ml) 3 ml NEB ONETIME ONE Stop: 06/09/16 18:09 Last Admin: 06/09/16 18:36 Dose: 3 ml Apixaban (Eliquis) 2.5 mg PO DAILY [facility] Last Admin: 06/10/16 11:27 Dose: Not Given Sodium Chloride (Normal Saline) 1,000 mls @ 125 mls/hr IV ASDIRECTED [facility] Last Admin: 06/10/16 02:07 Dose: 125 mls/hr Levofloxacin/Dextrose 750 mg/ (Premix) 150 mls @ 100 mls/hr IV ONETIME ONE Stop: 06/09/16 20:36 Last Admin: 06/09/16 19:14 Dose: 100 mls/hr Piperacillin Sod/Tazobactam (Sod 4.5 gm/ Sodium Chloride) 100 mls @ 200 mls/hr IV ONETIME ONE Stop: 06/10/16 02:44 Last Admin: 06/10/16 02:33 Dose: 200 mls/hr Non-Formulary Medication (Oxycodone Hcl/Acetaminophen) 1 - 2 each PO Q4H PRN PRN Reason: severe pain relief. Oxycodone/Acetaminophen (Percocet 325-5 Mg) 1 tab PO ONETIME ONE Stop: 06/09/16 20:36 Last Admin: 06/09/16 20:38 Dose: 1 tab Temazepam (Restoril) 7.5 mg PO BEDTIME PRN PRN Reason: Sleep - Exam Quality Assessment: No: supplemental oxygen General: alert, oriented, cooperative, no acute distress, other (Obese) HEENT: Pupils equal, Pupils reactive, EOMI, Mucous membr. moist/pink Neck: supple, trachea midline, no JVD, no thyromegaly Lungs: Normal respiratory effort, Decreased breath sounds, Crackles Cardiovascular: regular rate, regular rhythm Abdomen: bowel sounds present, no tenderness, no distension, other (Obese) (Male) Exam: Deferred Back Exam: normal inspection, decreased range of motion Extremities: no edema, normal pulses, no tenderness/swelling, no clubbing, no cyanosis, no calf tenderness Peripheral Pulses: 2+: dorsalis pedis (L), dorsalis pedis (R) Skin: warm, dry, intact Neurological: no new focal deficit Psy/Mental Status: alert, normal affect, normal mood - Problem List Review Problem List Initiated/Reviewed/Updated: Yes - My Orders Last 24 Hours: My Active Orders 06/10/16 09:00 Aspirin [Halfprin] 81 mg PO DAILY FLUoxetine [PROzac] 20 mg PO DAILY Ferrous Sulfate 325 mg PO DAILY Isosorbide Mononitrate [Imdur] 60 mg PO DAILY Metoprolol Succinate [Toprol XL] 25 mg PO DAILY Patient's Own Medication [Ptom] 0 each PO DAILY amLODIPine [Norvasc] 5 mg PO DAILY glipiZIDE [Glucotrol] 5 mg PO DAILY 06/10/16 11:00 Apixaban [Eliquis] 2.5 mg PO DAILY 06/10/16 12:27 Temazepam [Restoril] 7.5 mg PO BEDTIME PRN 06/10/16 14:00 Piperacillin/Tazobactam [Zosyn] 4.5 gm Sodium Chloride 0.9% [Normal Saline] 100 ml IV Q12H 06/10/16 17:45 Sodium Chloride 0.9% [Normal Saline] 1,000 ml IV ASDIRECTED 06/10/16 21:00 Simvastatin [Zocor] 10 mg PO BEDTIME 06/10/16 Breakfast Consistent Carbohydrate Diet [DIET] 06/11/16 07:40 Iron Sucrose Complex [Venofer] 200 mg Sodium Chloride 0.9% [Normal Saline] 250 ml IV ONETIME diphenhydrAMINE [Benadryl] 25 mg IVPUSH ONETIME ONE 06/11/16 07:41 Dexamethasone 4 mg PO ONETIME ONE 06/11/16 07:45 Magnesium Rep Pharmacy to Dose [Pharmacy to Dose - Magnesium Replacement] 1 dose .XX ASDIRECTED Potassium Rep Pharmacy to Dose [Pharmacy to Dose - Potassium Replacement] 1 dose .XX ASDIRECTED Sodium Chloride 0.9% [Normal Saline] 250 ml IV ASDIRECTED 06/11/16 19:00 Levofloxacin/Dextrose 5%-Water [Levaquin in D5W 500 MG/100 ML] 500 mg Premix Bag 1 bag IV Q48H 06/12/16 05:11 BASIC METABOLIC PANEL,BMP [CHEM] AM C-REACTIVE PROTEIN [CHEM] AM CBC WITH AUTO DIFF [HEME] AM MAGNESIUM [CHEM] AM 06/13/16 05:11 BASIC METABOLIC PANEL,BMP [CHEM] AM C-REACTIVE PROTEIN [CHEM] AM CBC WITH AUTO DIFF [HEME] AM MAGNESIUM [CHEM] AM 06/14/16 05:11 BASIC METABOLIC PANEL,BMP [CHEM] AM C-REACTIVE PROTEIN [CHEM] AM CBC WITH AUTO DIFF [HEME] AM MAGNESIUM [CHEM] AM 06/15/16 05:11 BASIC METABOLIC PANEL,BMP [CHEM] AM C-REACTIVE PROTEIN [CHEM] AM CBC WITH AUTO DIFF [HEME] AM MAGNESIUM [CHEM] AM 06/16/16 05:11 C-REACTIVE PROTEIN [CHEM] AM - Plan Plan:: Assessment/Plan: Acute: Post Bronchoscopy Parenchymal Infiltrate/Inflammation, Continue to improve - Common in Post-Bronch patient - He just had it done today - CXR shows chronic lung markings - Continue: IV Levaquin and Zosyn - Follow up CXR in am - Supplemental O2 and Bronchodilators Anemia of Chronic Disease - Hgb 9.8 ---> 7.9 - No active bleed - Iron Infusion x1 - Repeat lab this afternoon Acute on Chronic Kidney Disease - Baseline cr in the 4s, now at 5.8, he is now at stage V---> stable at 5.6 - IV Hydration - Stable renal function, no need to transfer him at this time Anion Gap-Metabolic Acidosis, Improving - 2/2 [facility] - Treat underlying cause Resolved: S/p Fever with Leukocytosis - WBC 12.43 ---> 8.41 - Likely 2/2 Above - Treat above Chronic: HTN HLD CAD S/p stents x 4 DARINEL on CPAP GERD BPH CKD One functional kidney DM2 OA and hx/o Colon and Renal Cancer Obesity with BMI 36 Plan: He is clinically stable He appears to be responding to treatment Routine AM Labs 250cc bolus NS x 1 Bumex 0.5 mg IVP x1 for fine crackles Dietary consult for weight management SW/CM for d/c planning Code status: 1 Additional orders as above Possible d/c in am
[2016-06-11] MEDS ORDERED: Sodium Chloride 0.9% 250 ML IV SCH (07:45)
[2016-06-11] MEDS: FLUoxetine 20 MG Cap PO SCH (08:14)
[2016-06-11] MEDS: Apixaban 5 MG Tab PO SCH (08:14)
[2016-06-11] MEDS: glipiZIDE 5 MG Tab PO SCH (08:14)
[2016-06-11] MEDS: amLODIPine 5 MG Tab PO SCH (08:15)
[2016-06-11] MEDS: Isosorbide Mononitrate 60 MG Tab.ER PO SCH (08:15)
[2016-06-11] MEDS ORDERED: Magnesium Sulfate/Water 2 GM in Premix Bag 1 BAG IV ONE (08:15)
[2016-06-11] MEDS: Metoprolol Succinate 25 MG Tab.ER PO SCH (08:15)
[2016-06-11] MEDS: Armodafinil [Nuvigil] 250 MG PO SCH (08:15)
[2016-06-11] MEDS: Ferrous Sulfate 325 MG Tab PO SCH (08:16)
[2016-06-11] MEDS: Aspirin 81 MG Tab.EC PO SCH (08:16)
[2016-06-11] MEDS ORDERED: LORazepam 2 MG/ML MDV IV PRN (09:24)
[2016-06-11] MEDS ORDERED: Temazepam 7.5 MG Cap PO PRN (09:24)
[2016-06-11] MEDS ORDERED: LORazepam 2 MG/ML MDV IVPUSH PRN (09:25)
[2016-06-11] MEDS ORDERED: Dexamethasone 4 MG Tab PO ONE (09:30)
[2016-06-11] MEDS ORDERED: diphenhydrAMINE 50 MG/ML SDV IVPUSH ONE (09:45)
[2016-06-11] MEDS ORDERED: Bumetanide 1 MG/4 ML MDV IVPUSH ONE (10:12)
[2016-06-11] MEDS: Sodium Chloride 0.9% 1,000 ML IV SCH (14:22)
[2016-06-11] MEDS ORDERED: Calcium Carbonate 500 MG Tab.Chew PO ONE (16:37)
[2016-06-11] MEDS ORDERED: Levofloxacin/Dextrose 5%-Water 500 MG in Premix Bag 1 BAG IV SCH (19:00)
[2016-06-11] MEDS: Simvastatin 10 MG Tab PO SCH ×2 (19:46→21:07)
--- NOTE | 2016-06-12 00:22 | PCM.DCSUM1 ---
Discharge Summary - Hospital Course Brief History: This is an 85 yo obese white male with past medical hx/o HTN, HLD , AL, CAD S/p Stent x 4, DARINEL on CPAP, GERD, BPH, CKD, One functional Kidney, OA/ DJD, DM2 and Hx/o colon and renal cancer who recently completed bronchoscopy in [facility] and on his way home he developed chills associated with shortness of breath and cough. Patient reports similar presentation a few years ago when he had his colonoscopy. Patient denies any chest or abdominal pain. His initial work up in ED shows a CBC remarkable for WBC 12.43, Hgb 9.8, Hct 30 , and platelet 152. His chemistry is significant for K 5.5, Cl 109, CO2 19, AG 18.5, BUN 53, Cr 5.8, BS 119, Ca 7.4, alk phos 191 and albumin 3. LA is 1.4, CKMB 1.8 and Troponin 0.024. His UA was negative for UTI but 3+ for protein. His CXR shows chronic increased lung markings. - Discharge Data Discharge Date: 06/12/16 Discharge Disposition: Home, Self-Care 01 Condition: Good - Discharge Diagnosis/Problem(s) (1) Pulmonary infiltrate SNOMED Code(s): 375576104 ICD Code: R91.8 - OTHER NONSPECIFIC ABNORMAL FINDING OF LUNG FIELD Status: Acute (2) Anemia of chronic disease SNOMED Code(s): 972906087 ICD Code: D63.8 - ANEMIA IN OTHER CHRONIC DISEASES CLASSIFIED ELSEWHERE Status: Chronic (3) Metabolic acidosis, increased anion gap (IAG) SNOMED Code(s): 28271162 ICD Code: E87.2 - ACIDOSIS Status: Resolved (4) Acute kidney injury superimposed on chronic kidney disease SNOMED Code(s): 10661735 ICD Code: N17.9 - ACUTE KIDNEY FAILURE, UNSPECIFIED; N18.9 - CHRONIC KIDNEY DISEASE, UNSPECIFIED Status: Acute (5) Febrile illness, acute SNOMED Code(s): 407680450 ICD Code: R50.9 - FEVER, UNSPECIFIED Status: Acute (6) Status post bronchoscopy SNOMED Code(s): 289899852 ICD Code: Z98.890 - OTHER SPECIFIED POSTPROCEDURAL STATES Status: Inactive - Patient Summary/Data Operative Procedure(s) Performed: None Complications: None Consults: Consultations 06/10/16 02:00 Consult to Case Management [CONS] Routine Consult to Conduit Bender [CONS] Routine OT Evaluation and Treatment [CONS] Routine PT Evaluation and Treatment [CONS] Routine Respiratory Care Assess and Treatment [CONS] Routine Hospital Course: Patient was primarily admitted for medical management of fever and pulmonary infiltrate (likely form bronchial washings from biopsy) status post bronchoscopy. He was given supportive care, intravenous antibiotics, bronchodilators, supplemental O2, and routine respiratory care to improve his symptoms. The patient responded well with the treatment. His hospital course was mildly complicated by acute on chronic kidney injury in setting of his one functional kidney. Patient came with a Cr of 5.8, a change from his baseline of 4s. However with gentle hydration and avoiding unnecessary nephrotoxic agents, his renal functions stabilizes. Patient is now ready for discharge. We expect for him to get better as he continues to take an additional course of oral levaquin 500 mg po Q48 for 3 more tabs. He was advised to continue to use his IS as directed and to have a repeat labs by - next week. He was further advised to call his PCP for any urgent concerns or lingering issues related to most recent hospitalizations. The patient expressed understanding and in agreement with the plans as discussed above. All questions were answered. - Patient Instructions Diet: Heart Healthy Diet, Usual Diet as Tolerated Activity: As Tolerated Driving: Do Not Drive Showering/Bathing: May Shower Notify Provider of: Fever, Increased Pain, Swelling and Redness, Nausea and/or Vomiting Other/Special Instructions: - Please take all medications as directed. - Follow up with your doctor after discharge - Discharge Plan Prescriptions/Med Rec: Levofloxacin [Levaquin] 500 mg PO Q48H #3 tablet Home Medications: Home Meds Armodafinil [Nuvigil] 250 mg PO DAILY 09/02/15 [History] Furosemide [Lasix] 40 mg PO DAILY 09/02/15 [History] Isosorbide Mononitrate [Isosorbide Mononitrate ER] 60 mg PO DAILY 09/02/15 [ History] Levothyroxine [Synthroid] 50 mcg PO ACBREAKFAST 09/02/15 [History] Metoprolol Succinate [Toprol XL] 1 tab PO DAILY 09/02/15 [History] Pravastatin Sodium [Pravachol] 20 mg PO BEDTIME 09/02/15 [History] oxyCODONE HCl/Acetaminophen [Percocet 10-325 mg Tablet] 1 - 2 each PO Q4H PRN # 36 tablet 09/02/15 [Rx] Apixaban [Eliquis] 2.5 mg PO DAILY 10/11/15 [History] Aspirin [Halfprin] 81 mg PO DAILY 10/11/15 [History] FLUoxetine [PROzac] 20 mg PO DAILY 10/11/15 [History] Nitroglycerin 0.4 mg PO BID PRN 10/11/15 [History] amLODIPine [Norvasc] 5 mg PO DAILY 10/11/15 [History] glipiZIDE [Glucotrol] 5 mg PO DAILY 10/11/15 [History] Albuterol/Ipratropium [DuoNeb 3.0-0.5 MG/3 ML] 1 inhalation INH Q4H PRN [History] Ferrous Sulfate 325 mg PO DAILY 06/10/16 [History] Levofloxacin [Levaquin] 500 mg PO Q48H #3 tablet 06/12/16 [Rx] Patient Handouts: Coronary Artery Disease, Male, Chronic Kidney Disease, Easy- to-Read Referrals: Herman Monroe MD [Primary Care Provider] - - Discharge Summary/Plan Comment DC Time >30 min.: Yes (45 mins) Discharge Summary/Plan Comment: Discharge to Home - General Info Date of Service: 06/12/16 Admission Dx/Problem (Free Text: Febrile Illness Subjective Update: Follow Up Functional Status: Reports: pain controlled, tolerating diet, ambulating, urinating. Denies: new symptoms - Review of Systems General: Denies: Fever, Chills HEENT: Reports: no symptoms Pulmonary: Reports: shortness of breath Cardiovascular: Denies: Chest Pain Gastrointestinal: Denies: Abdominal pain, Nausea, Vomiting Genitourinary: Reports: no symptoms Musculoskeletal: Reports: no symptoms Skin: Denies: cyanosis Neurological: Denies: Dizziness, Difficulty Walking, Weakness Psychiatric: Denies: confusion, depression, anxiety, hallucinations - Patient Data Vitals - Most Recent: Last Vital Signs Temp 37.3 C 06/11/16 19:49 Pulse 73 06/11/16 19:49 Resp 18 06/11/16 19:49 BP 155/81 H 06/11/16 19:49 Pulse Ox 99 06/11/16 19:49 Weight - Most Recent: 66.95 kg I&O - Last 24 hours: Intake & Output 06/11/16 06/11/16 06/12/16 14:59 22:59 07:59 Intake Total 330 2327 Output Total 2500 Balance 330 -173 Lab Results - Last 24 hrs: Laboratory Results - last 24 hr 06/11/16 06/11/16 06/11/16 Range/Units 05:07 05:07 14:00 WBC 6.92 8.91 (4.23-9.07) K/mm3 RBC 2.48 L 2.76 L (4.63-6.08) M/mm3 Hgb 7.9 L 8.8 L (13.7-17.5) gm/L Hct 24.4 L 27.5 L (40.1-51.0) % MCV 98.4 H 99.6 H (79.0-92.2) fl MCH 31.9 31.9 (25.7-32.2) pg MCHC 32.4 32.0 L (32.2-35.5) g/dl RDW Std Deviation 47.1 H 48.0 H (35.1-43.9) fL Plt Count 116 L 143 L (163-337) K/mm3 MPV 10.7 10.6 (9.4-12.3) fl Neut % (Auto) 67.4 84.4 H (34.0-67.9) % Lymph % (Auto) 15.9 L 8.8 L (21.8-53.1) % Walsh % (Auto) 13.2 H 5.3 (5.3-12.2) % Eos % (Auto) 3.3 1.2 (0.8-7.0) Baso % (Auto) 0.1 0.2 (0.1-1.2) % Neut # 4.66 7.52 H (1.78-5.38) K/mm3 Lymph # 1.10 L 0.78 L (1.32-3.57) K/mm3 Walsh # 0.91 H 0.47 (0.30-0.82) K/mm3 Eos # 0.23 0.11 (0.04-0.54) K/mm3 Baso # 0.01 0.02 (0.01-0.08) K/mm3 Manual Slide Review Abnormal smear Abnormal smear Sodium 140 (136-145) mEq/L Potassium 5.3 H (3.5-5.1) mEq/L Chloride 110 H (98-107) mEq/L Carbon Dioxide 16 L (21-32) mEq/L Anion Gap 19.3 H (5-15) BUN 55 H (7-18) mg/dL Creatinine 5.6 H (0.7-1.3) mg/dL Est Cr Clr Drug Dosing 9.46 mL/min Estimated GFR (MDRD) 10 (>60) mL/min BUN/Creatinine Ratio 9.8 L (14-18) Glucose 71 L (83-115) mg/dL Calcium 7.0 L (8.5-10.1) mg/dL Magnesium 1.3 L (1.8-2.4) mg/dl CK-MB (CK-2) (0-3.6) ng/ml Troponin I (0.00-0.056) ng/mL C-Reactive Protein 8.7 H* (<1.0) mg/dL 06/11/16 Range/Units 16:55 WBC (4.23-9.07) K/mm3 RBC (4.63-6.08) M/mm3 Hgb (13.7-17.5) gm/L Hct (40.1-51.0) % MCV (79.0-92.2) fl MCH (25.7-32.2) pg MCHC (32.2-35.5) g/dl RDW Std Deviation (35.1-43.9) fL Plt Count (163-337) K/mm3 MPV (9.4-12.3) fl Neut % (Auto) (34.0-67.9) % Lymph % (Auto) (21.8-53.1) % Walsh % (Auto) (5.3-12.2) % Eos % (Auto) (0.8-7.0) Baso % (Auto) (0.1-1.2) % Neut # (1.78-5.38) K/mm3 Lymph # (1.32-3.57) K/mm3 Walsh # (0.30-0.82) K/mm3 Eos # (0.04-0.54) K/mm3 Baso # (0.01-0.08) K/mm3 Manual Slide Review Sodium (136-145) mEq/L Potassium (3.5-5.1) mEq/L Chloride (98-107) mEq/L Carbon Dioxide (21-32) mEq/L Anion Gap (5-15) BUN (7-18) mg/dL Creatinine (0.7-1.3) mg/dL Est Cr Clr Drug Dosing mL/min Estimated GFR (MDRD) (>60) mL/min BUN/Creatinine Ratio (14-18) Glucose (83-115) mg/dL Calcium (8.5-10.1) mg/dL Magnesium (1.8-2.4) mg/dl CK-MB (CK-2) 1.6 (0-3.6) ng/ml Troponin I < 0.017 (0.00-0.056) ng/mL C-Reactive Protein (<1.0) mg/dL Med Orders - Current: Current Medications Acetaminophen (Tylenol) 650 mg PO Q4H PRN PRN Reason: Pain (Mild 1-3)/fever Acetaminophen/Hydrocodone Bitart (Durant 325-5 Mg) 1 tab PO Q4H PRN PRN Reason: Pain (moderate 4-6) Albuterol/Ipratropium (Duoneb 3.0-0.5 Mg/3 Ml) 3 ml NEB Q4H PRN PRN Reason: Shortness Of Breath/wheezing Amlodipine Besylate (Norvasc) 5 mg PO DAILY [facility] Last Admin: 06/11/16 08:15 Dose: 5 mg Apixaban (Eliquis) 2.5 mg PO DAILY [facility] Last Admin: 06/11/16 08:14 Dose: 2.5 mg Aspirin (Halfprin) 81 mg PO DAILY [facility] Last Admin: 06/11/16 08:16 Dose: 81 mg Bisacodyl (Dulcolax) 5 mg PO DAILY PRN PRN Reason: Constipation Ferrous Sulfate (Ferrous Sulfate) 325 mg PO DAILY [facility] Last Admin: 06/11/16 08:16 Dose: 325 mg Fluoxetine HCl (Prozac) 20 mg PO DAILY [facility] Last Admin: 06/11/16 08:14 Dose: 20 mg Glipizide (Glucotrol) 5 mg PO DAILY [facility] Last Admin: 06/11/16 08:14 Dose: 5 mg Hydromorphone HCl (Dilaudid) 0.25 mg IVPUSH Q2H PRN PRN Reason: Pain (severe 7-10) Promethazine HCl 12.5 mg/ (Sodium Chloride) 50.5 mls @ 100 mls/hr IV Q6H PRN PRN Reason: Nausea/Vomiting Piperacillin Sod/Tazobactam (Sod 4.5 gm/ Sodium Chloride) 100 mls @ 25 mls/hr IV Q12H [facility] Last Admin: 06/11/16 14:21 Dose: 25 mls/hr Levofloxacin/Dextrose 500 mg/ (Premix) 100 mls @ 100 mls/hr IV Q48H [facility] Last Admin: 06/11/16 18:21 Dose: 100 mls/hr Sodium Chloride (Normal Saline) 1,000 mls @ 50 mls/hr IV ASDIRECTED [facility] Last Admin: 06/11/16 14:22 Dose: 50 mls/hr Sodium Chloride (Normal Saline) 250 mls @ 999 mls/hr IV ASDIRECTED [facility] Isosorbide Mononitrate (Imdur) 60 mg PO DAILY [facility] Last Admin: 06/11/16 08:15 Dose: 60 mg Levothyroxine Sodium (Synthroid) 50 mcg PO ACBREAKFAST [facility] Last Admin: 06/11/16 06:19 Dose: 50 mcg Lorazepam (Ativan) 1 mg IV Q6H PRN PRN Reason: Anxiety Lorazepam (Ativan) 1 mg IVPUSH BEDTIME PRN; Protocol PRN Reason: Insomnia Last Admin: 06/11/16 19:47 Dose: 1 mg Magnesium Sulfate (Pharmacy To Dose - Magnesium Replacement) 0 dose .XX ASDIRECTED PRN PRN Reason: RX TO MONITOR MAG LEVELS Metoprolol Succinate (Toprol Xl) 25 mg PO DAILY [facility] Last Admin: 06/11/16 08:15 Dose: 25 mg Nitroglycerin (Nitrolingual) 0 gm TRLING BID PRN PRN Reason: PAIN Ondansetron HCl (Zofran) 4 mg IV Q6H PRN PRN Reason: Nausea/Vomiting Oxycodone HCl (Oxycodone) 5 - 10 mg PO Q4H PRN PRN Reason: PAIN Oxycodone/Acetaminophen (Percocet 325-5 Mg) 1 - 2 tab PO Q4H PRN PRN Reason: PAIN Armodafinil [Nuvigil (] 250 Mg) 0 each PO DAILY [facility] Last Admin: 06/11/16 08:15 Dose: Not Given Polyethylene Glycol (Miralax) 17 gm PO DAILY PRN PRN Reason: Constipation Potassium Chloride (Pharmacy To Dose - Potassium Replacement) 0 dose .XX ASDIRECTED PRN PRN Reason: RX TO MONITOR K LEVELS Senna/Docusate Sodium (Senna Plus) 1 tab PO BID PRN PRN Reason: Constipation Simvastatin (Zocor) 10 mg PO BEDTIME [facility] Last Admin: 06/11/16 21:07 Dose: Not Given Sodium Chloride (Saline Flush) 10 ml FLUSH ASDIRECTED PRN PRN Reason: Keep Vein Open Last Admin: 06/09/16 18:23 Dose: 10 ml Temazepam (Restoril) 30 mg PO BEDTIME PRN PRN Reason: Sleep Last Admin: 06/11/16 19:47 Dose: 30 mg Discontinued Medications Acetaminophen (Tylenol) 975 mg PO NOW ONE Stop: 06/09/16 18:10 Last Admin: 06/09/16 18:21 Dose: 975 mg Albuterol/Ipratropium (Duoneb 3.0-0.5 Mg/3 Ml) 3 ml NEB ONETIME ONE Stop: 06/09/16 18:09 Last Admin: 06/09/16 18:36 Dose: 3 ml Apixaban (Eliquis) 2.5 mg PO DAILY [facility] Last Admin: 06/10/16 11:27 Dose: Not Given Bumetanide (Bumex) 0.5 mg IVPUSH ONETIME ONE Stop: 06/11/16 10:13 Last Admin: 06/11/16 11:30 Dose: 0.5 mg Calcium Carbonate/Glycine (Tums) 1,000 mg PO ONETIME ONE Stop: 06/11/16 16:38 Last Admin: 06/11/16 17:01 Dose: 1,000 mg Dexamethasone (Dexamethasone) 4 mg PO ONETIME ONE Stop: 06/11/16 09:31 Last Admin: 06/11/16 09:51 Dose: 4 mg Diphenhydramine HCl (Benadryl) 25 mg IVPUSH ONETIME ONE Stop: 06/11/16 09:46 Last Admin: 06/11/16 10:33 Dose: 25 mg Sodium Chloride (Normal Saline) 1,000 mls @ 125 mls/hr IV ASDIRECTED STACEY Last Admin: 06/10/16 02:07 Dose: 125 mls/hr Levofloxacin/Dextrose 750 mg/ (Premix) 150 mls @ 100 mls/hr IV ONETIME ONE Stop: 06/09/16 20:36 Last Admin: 06/09/16 19:14 Dose: 100 mls/hr Piperacillin Sod/Tazobactam (Sod 4.5 gm/ Sodium Chloride) 100 mls @ 200 mls/hr IV ONETIME ONE Stop: 06/10/16 02:44 Last Admin: 06/10/16 02:33 Dose: 200 mls/hr Iron Sucrose 400 mg/ Sodium (Chloride) 270 mls @ 85 mls/hr IV ONETIME ONE Stop: 06/11/16 13:10 Last Admin: 06/11/16 10:37 Dose: 85 mls/hr Magnesium Sulfate 2 gm/ Premix 50 mls @ 50 mls/hr IV ONETIME ONE Stop: 06/11/16 09:14 Last Admin: 06/11/16 08:16 Dose: 50 mls/hr Lorazepam (Ativan) 0.5 mg IV Q6H PRN PRN Reason: Anxiety Last Admin: 06/10/16 20:08 Dose: 0.5 mg Non-Formulary Medication (Oxycodone Hcl/Acetaminophen) 1 - 2 each PO Q4H PRN PRN Reason: severe pain relief. Oxycodone/Acetaminophen (Percocet 325-5 Mg) 1 tab PO ONETIME ONE Stop: 06/09/16 20:36 Last Admin: 06/09/16 20:38 Dose: 1 tab Temazepam (Restoril) 7.5 mg PO BEDTIME PRN PRN Reason: Sleep Temazepam (Restoril) 7.5 mg PO BEDTIME PRN PRN Reason: Sleep Last Admin: 06/10/16 20:08 Dose: 7.5 mg - Exam General: Reports: alert, oriented, cooperative HEENT: Reports: Pupils equal, Pupils reactive, EOMI, Mucous membr. moist/pink Neck: Reports: supple, trachea midline, no JVD Lungs: Reports: Normal respiratory effort, Decreased breath sounds, Crackles Cardiovascular: Reports: Regular Rate, Regular Rhythm Abdomen: Reports: bowel sounds present, soft, no tenderness, no distension (Male) Exam: Deferred Rectal (Males) Exam: Deferred Back Exam: Reports: normal inspection, decreased range of motion Extremities: Reports: no edema, normal pulses, no tenderness/swelling, no cyanosis, no calf tenderness Skin: Reports: warm, dry, intact Neurological: Reports: no new focal deficit Psy/Mental Status: Reports: alert, normal affect, normal mood *Q Meaningful Use (DIS) - VTE *Q VTE Criteria *Q: - Stroke *Q Stroke Criteria *Q: - AMI *Q AMI Criteria *Q:
[2016-06-12] MEDS: Piperacillin/Tazobactam 4.5 GM in Sodium Chloride 0.9% 100 ML IV SCH (03:30)
[2016-06-12] MEDS: Levothyroxine 50 MCG Tab PO SCH (06:20)
[2016-06-12 08:13] VITALS: BP 124/71
[2016-06-12] MEDS: FLUoxetine 20 MG Cap PO SCH (08:35)
[2016-06-12] MEDS: Apixaban 5 MG Tab PO SCH (08:35)
[2016-06-12] MEDS: Metoprolol Succinate 25 MG Tab.ER PO SCH (08:35)
[2016-06-12] MEDS: Ferrous Sulfate 325 MG Tab PO SCH (08:35)
[2016-06-12] MEDS: amLODIPine 5 MG Tab PO SCH (08:35)
[2016-06-12] MEDS: Aspirin 81 MG Tab.EC PO SCH (08:36)
[2016-06-12] MEDS: glipiZIDE 5 MG Tab PO SCH (08:36)
[2016-06-12] MEDS: Isosorbide Mononitrate 60 MG Tab.ER PO SCH (08:36)
[2016-06-12] MEDS: Armodafinil [Nuvigil] 250 MG PO SCH (08:36)
--- NOTE | 2016-06-12 08:59 | CR ---
Chest: Portable view of the chest was obtained. Comparison: Previous chest x-ray of 06/09/16. Heart is enlarged. Central lung markings are increased. Most of the findings are chronic but but findings are felt to be slightly improved from prior exam. Density within the left upper chest shows improvement but has not yet completely resolved. Bony structures are osteopenic. Impression: 1. Findings are improved but have not yet returned to baseline. Diagnostic code #3
== END 2016-06-12 12:15 | disposition home or self-care (01) | DRG 194 ==
LOC: JD.ED 17:50 → JD.MS 20:29
PROVIDERS: ADMIT Internal Medicine; ATTEND Internal Medicine
DX: J18.9 Pneumonia, unspecified organism (principal); D64.9 Anemia, unspecified; N17.9 Acute kidney failure, unspecified; E87.2 Acidosis; Z98.890 Other specified postprocedural states; I25.10 Atherosclerotic heart disease of native coronary artery without angina pectoris; I12.9 Hypertensive chronic kidney disease with stage 1 through stage 4 chronic kidney disease, or unspecified chronic kidney disease; E11.22 Type 2 diabetes mellitus with diabetic chronic kidney disease; N18.9 Chronic kidney disease, unspecified; G47.30 Sleep apnea, unspecified; D63.1 Anemia in chronic kidney disease; Z87.891 Personal history of nicotine dependence; Z79.84 Long term (current) use of oral hypoglycemic drugs; E78.00 Pure hypercholesterolemia, unspecified; I25.2 Old myocardial infarction; Z95.5 Presence of coronary angioplasty implant and graft; E78.5 Hyperlipidemia, unspecified; H91.93 Unspecified hearing loss, bilateral; Z79.82 Long term (current) use of aspirin; Z79.899 Other long term (current) drug therapy; Z88.8 Allergy status to other drugs, medicaments and biological substances; G47.33 Obstructive sleep apnea (adult) (pediatric); K21.9 Gastro-esophageal reflux disease without esophagitis; N40.0 Benign prostatic hyperplasia without lower urinary tract symptoms; Z90.5 Acquired absence of kidney; M19.90 Unspecified osteoarthritis, unspecified site; Z85.038 Personal history of other malignant neoplasm of large intestine; Z85.528 Personal history of other malignant neoplasm of kidney; E66.9 Obesity, unspecified; Z68.36 Body mass index [BMI] 36.0-36.9, adult
CPT/HCPCS: 36415; 71010; 80053; 81001; 83605; 85025; 87040 ×2; 94664; 96361; 96365; 96366; 99285; A9270; J1956; J7040; J7050; 80048; 82553; 82962; 83735; 84484; 86140; 87804; 93005; 94761; 97110-GP; 97161-GP; 97165-GO; 97530-GP; 99222; 99232; 99239; J1200; J1756; J2060; J2543; J3475; J7030; J8540

== ENCOUNTER 2016-08-19 08:59 | Emergency (ER) | payer MEDICARE, OTHER ==
--- NOTE | 2016-08-19 09:16 | EDM.PDOC ---
ED HPI GENERAL MEDICAL PROBLEM - General Chief Complaint: Neuro Symptoms/Deficits Stated Complaint: FACIAL DROOPING Time Seen by Provider: 08/19/16 09:11 Source of Information: Reports: Patient History Limitations: Reports: No Limitations - History of Present Illness INITIAL COMMENTS - FREE TEXT/NARRATIVE: 85-year-old male presents the ED with right facial drooping and recognizes fluid throughout the right side of his mouth for the last 3-4 days. No change in his visual acuity. No change in his walking or his balance. No problems identified a feeding himself with his right arm. No falls or injuries. Of note the patient has chronic atrial fibrillation and is on Eliquis 2.5 mg twice a day. has not had any recent falls or closed head injuries. 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 It is found anterior to his right ear. 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 Concern would be that the. For that the function of this kidney and up on dialysis. Onset: Sudden (Came on about 3-4 days ago.) Onset Date: 08/16/16 Duration: Day(s):, Constant Location: Reports: Face (Right facial drooping.) Quality: Reports: Other Severity: Moderate Improves with: Reports: None Worsens with: Reports: None Context: Denies: Activity, Exercise, Lifting, Sick Contact, Trauma, Other Associated Symptoms: Reports: Cough (Intermittent and chronic), Shortness of Breath, Weakness (In the right face.). Denies: Confusion, Chest Pain, cough w sputum, Diaphoresis ( minimally productive), Fever/Chills, Headaches, Loss of Appetite, Malaise, Nausea/Vomiting (Chronically due to COPD), Syncope Treatments SET DESIGNER: Reports: Other (see below) (None.) - Related Data Allergies Allergy/AdvReac Type Severity Reaction Status Date / Time ramipril [From Altace] Allergy Cannot Verified 08/19/16 09:10 Remember ticagrelor [From BRILINTA] Allergy Cannot Verified 08/19/16 09:10 Remember Home Meds: Home Meds Armodafinil [Nuvigil] 250 mg PO DAILY 09/02/15 [History] Isosorbide Mononitrate [Isosorbide Mononitrate ER] 60 mg PO DAILY 09/02/15 [ History] Levothyroxine [Synthroid] 75 mcg PO ACBREAKFAST 09/02/15 [History] Metoprolol Succinate [Toprol XL] 25 mg PO DAILY 09/02/15 [History] Pravastatin Sodium [Pravachol] 20 mg PO BEDTIME 09/02/15 [History] oxyCODONE HCl/Acetaminophen [Percocet 10-325 mg Tablet] 1 - 2 each PO Q4H PRN # 36 tablet 09/02/15 [Rx] Apixaban [Eliquis] 2.5 mg PO DAILY 10/11/15 [History] Aspirin [Halfprin] 81 mg PO DAILY 10/11/15 [History] FLUoxetine [PROzac] 20 mg PO DAILY 10/11/15 [History] Nitroglycerin 0.4 mg PO BID PRN 10/11/15 [History] amLODIPine [Norvasc] 5 mg PO DAILY 10/11/15 [History] glipiZIDE [Glucotrol] 5 mg PO DAILY 10/11/15 [History] Albuterol/Ipratropium [DuoNeb 3.0-0.5 MG/3 ML] 1 inhalation INH Q4H PRN [History] Ferrous Sulfate 325 mg PO DAILY 06/10/16 [History] Past Medical History HEENT History: Reports: Hard of Hearing Other HEENT History: Wears hearing aids Cardiovascular History: Reports: High Cholesterol, Hypertension, IN Respiratory History: Reports: Sleep Apnea Other Respiratory History: Wears CPAP at night Gastrointestinal History: Reports: GERD Genitourinary History: Reports: BPH, Chronic Renal Insuffiency Other Genitourinary History: pt has 1 kidney Musculoskeletal History: Reports: Osteoarthritis Endocrine/Metabolic History: Reports: Diabetes, Type II Hematologic History: Reports: Iron Deficiency Oncologic (Cancer) History: 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, Renal - Infectious Disease History Infectious Disease History: Reports: Chicken Pox - Past Surgical History HEENT Surgical History: Reports: Cataract Surgery, Tonsillectomy Cardiovascular Surgical History: Reports: Coronary Artery Stent GI Surgical History: 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, Colostomy, Hernia, Abdominal Neurological Surgical History: Reports: Lumbar Spine Musculoskeletal Surgical History: Reports: Knee Replacement, Shoulder Surgery Social & Family History - Family History Family Medical History: Noncontributory - Tobacco Use Smoking Status *Q: Former Smoker Years of Tobacco use: 30 Packs/Tins Daily: 1 Used Tobacco, but Quit: Yes Month Tobacco Last Used: 1995 Second Hand Smoke Exposure: No - Caffeine Use Caffeine Use: Reports: Coffee, Soda - Recreational Drug Use Recreational Drug Use: No - Living Situation & Occupation Living situation: Reports: , with Spouse Occupation: Retired ED ROS GENERAL - Review of Systems Review Of Systems: See Below Constitutional: Denies: Fever, Chills, Malaise, Weakness, Fatigue, Decreased Appetite, Weight Loss HEENT: Denies: Contact Lenses, Dental Pain, Ear Discharge, Ear Pain, Eye Discharge, Eye Pain, Glasses, Hearing Loss, Nosebleed, Vertigo Respiratory: Reports: Shortness of Breath, Wheezing (Chronically due to COPD.), Cough (Nonproductive). Denies: Pleuritic Chest Pain ( Occasional), Hemoptysis Cardiovascular: Reports: Blood Pressure Problem, Dyspnea on Exertion ( Chronically). Denies: Chest Pain, Claudication (Chronic hypertension. Blood pressure is elevated at present at 199/97.), Edema, Lightheadedness, Orthopnea Endocrine: Reports: Fatigue GI/Abdominal: Reports: Constipation : Reports: Frequency (Nocturia at least 3 times nightly.), Other Musculoskeletal: Reports: Neck Pain, Back Pain, Joint Pain (Knees and hips) Skin: Reports: Bruising (Bruises easy due to being on Eliquis.) Neurological: Reports: Tingling (Right alicia-face), Weakness (Weakness with right facial droop.). Denies: Confusion, Dizziness, Headache, Numbness, Paresthesia, Pre-Existing Deficit, Seizure, Syncope, Tremors, Trouble Speaking, Difficulty Walking, Change in Speech, Gait Disturbance Psychiatric: Reports: No Symptoms Hematologic/Lymphatic: Reports: No Symptoms Immunologic: Reports: No Symptoms ED EXAM, NEURO - Physical Exam Exam: See Below Exam Limited By: No Limitations General Appearance: Alert, WD/WN, No Apparent Distress, Other (Obvious right facial droop.) Eye Exam: Bilateral Eye: Normal Inspection, PERRL Ears: Normal External Exam Nose: Normal Inspection Throat/Mouth: Normal Inspection Head Exam: Atraumatic, Normocephalic, Facial Swelling (Patient has a 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 He states his been present for 3-4 years which would suggest that it is benign. However it appears that it is certainly in the distribution of the seventh cranial nerve on this side and is likely the cause of his current right facial droop.) Neck: Normal Inspection, Supple, Non-Tender, Full Range of Motion. No: Lymphadenopathy (L), Lymphadenopathy (R) Respiratory/Chest: No Respiratory Distress, Lungs Clear, Normal Breath Sounds, No Accessory Muscle Use Cardiovascular: Normal Peripheral Pulses, No Murmur, No Rub, Irregularly Irregular GI/Abdominal: Normal Bowel Sounds, Soft, Non-Tender, No Distention (Male) Exam: No Hernia Neurological: Alert, Normal Mood/Affect, Normal Dorsiflexion, Normal Gait, Oriented x 3, Other (Has right facial droop weakness with impaired seventh cranial nerve.). No: CN II-XII Intact, Normal Reflexes, No Motor/Sensory Deficits Psychiatric: Normal Affect, Normal Mood Skin Exam: Warm, Dry, Intact, Normal Color, Other (Multiple ecchymoses particularly left dorsal hand and left forearm. A few on the right side as well. These every time he bumps himself he bruises.) EKG INTERPRETATION EKG Date: 08/19/16 Time: 09:25 Rhythm: NSR Rate (beats/min): 65 (Occasional PACs.) [place]: normal P-wave: enlarged (Consider right atrial hypertrophy pattern.) QRS: normal ST-T: normal QT: prolonged (Mildly prolonged) Course - Vital Signs Last Recorded V/S: Last Vital Signs Temp 36.3 C 08/19/16 09:02 Pulse 64 08/19/16 10:26 Resp 20 08/19/16 10:26 BP 166/66 H 08/19/16 10:26 Pulse Ox 100 08/19/16 10:26 - Orders/Labs/Meds Orders: Active Orders 24 hr Category Date Time Status EKG Documentation Completion [RC] STAT Care 08/19/16 09:12 Active Labs: Laboratory Tests 08/19/16 08/19/16 08/19/16 Range/Units 09:05 09:05 09:05 WBC 9.10 H (4.23-9.07) K/mm3 RBC 2.96 L (4.63-6.08) M/mm3 Hgb 9.3 L (13.7-17.5) gm/L Hct 29.0 L (40.1-51.0) % MCV 98.0 H (79.0-92.2) fl MCH 31.4 (25.7-32.2) pg MCHC 32.1 L (32.2-35.5) g/dl RDW Std Deviation 50.4 H (35.1-43.9) fL Plt Count 149 L (163-337) K/mm3 MPV 10.1 (9.4-12.3) fl Neutrophils % (Manual) 83 H (40-60) % Band Neutrophils % Not Reportable Lymphocytes % (Manual) 9 L (20-40) % Monocytes % (Manual) 8 (2-10) % Eosinophils % (Manual) Not Reportable Basophils % (Manual) Not Reportable Platelet Estimate Adequate Plt Morphology Comment Normal Hypochromasia 1+ slight Anisocytosis 1+ slight RBC Morph Comment Not Reportable PT 10.5 (8.0-13.0) SECONDS INR 0.97 APTT 28 (22-36) SECONDS Sodium 142 (136-145) mEq/L Potassium 5.5 H (3.5-5.1) mEq/L Chloride 111 H (98-107) mEq/L Carbon Dioxide 17 L (21-32) mEq/L Anion Gap 19.5 H (5-15) BUN 71 H (7-18) mg/dL Creatinine 5.4 H (0.7-1.3) mg/dL Est Cr Clr Drug Dosing 10.36 mL/min Estimated GFR (MDRD) 10 (>60) mL/min BUN/Creatinine Ratio 13.1 L (14-18) Glucose 110 (83-115) mg/dL Calcium 7.2 L (8.5-10.1) mg/dL Magnesium 1.3 L (1.8-2.4) mg/dl Total Bilirubin 0.3 (0.2-1.0) mg/dL AST 12 L (15-37) U/L ALT 20 (16-63) U/L Alkaline Phosphatase 173 H (46-116) U/L Troponin I 0.028 (0.00-0.056) ng/mL C-Reactive Protein < 0.2 (<1.0) mg/dL B-Natriuretic Peptide (0-100) pg/mL Total Protein 7.1 (6.4-8.2) g/dl Albumin 3.1 L (3.4-5.0) g/dl Globulin 4.0 gm/dL Albumin/Globulin Ratio 0.8 L (1-2) 08/19/16 Range/Units 09:05 WBC (4.23-9.07) K/mm3 RBC (4.63-6.08) M/mm3 Hgb (13.7-17.5) gm/L Hct (40.1-51.0) % MCV (79.0-92.2) fl MCH (25.7-32.2) pg MCHC (32.2-35.5) g/dl RDW Std Deviation (35.1-43.9) fL Plt Count (163-337) K/mm3 MPV (9.4-12.3) fl Neutrophils % (Manual) (40-60) % Band Neutrophils % Lymphocytes % (Manual) (20-40) % Monocytes % (Manual) (2-10) % Eosinophils % (Manual) Basophils % (Manual) Platelet Estimate Plt Morphology Comment Hypochromasia Anisocytosis RBC Morph Comment PT (8.0-13.0) SECONDS INR APTT (22-36) SECONDS Sodium (136-145) mEq/L Potassium (3.5-5.1) mEq/L Chloride (98-107) mEq/L Carbon Dioxide (21-32) mEq/L Anion Gap (5-15) BUN (7-18) mg/dL Creatinine (0.7-1.3) mg/dL Est Cr Clr Drug Dosing mL/min Estimated GFR (MDRD) (>60) mL/min BUN/Creatinine Ratio (14-18) Glucose (83-115) mg/dL Calcium (8.5-10.1) mg/dL Magnesium (1.8-2.4) mg/dl Total Bilirubin (0.2-1.0) mg/dL AST (15-37) U/L ALT (16-63) U/L Alkaline Phosphatase (46-116) U/L Troponin I (0.00-0.056) ng/mL C-Reactive Protein (<1.0) mg/dL B-Natriuretic Peptide 543 H (0-100) pg/mL Total Protein (6.4-8.2) g/dl Albumin (3.4-5.0) g/dl Globulin gm/dL Albumin/Globulin Ratio (1-2) - Radiology Interpretation Free Text/Narrative:: 85-year-old male presents to the ED with right facial weakness and droop. He is nonspecific as to how long symptoms occurred but sounds like 3-4 days ago. He appreciates food but a fluid throughout the right side of his face. IE he is drooling. He has no other neurological deficit. 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 On examination the tumor is approximately 2.5 cm in diameter and still mobile within the superficial lobe anterior to the right ear. It is also in the direct path of the right facial nerve. CT of the brain revealed senescent changes only with diffuse small vessel scheming changes in the basal ganglia with no sign of stroke or bleed on Eliquis. - Re-Assessments/Exams Free Text/Narrative Re-Assessment/Exam: 08/19/16 09:40 CT of the brain reveals only senescent changes with no evidence of any midline shift or increased intracranial pressure. No evidence of previous CVA. ECG shows sinus rhythm with frequent PACs. Rate is 65 per minute. Likely underlying right atrial hypertrophy pattern. Will await his labs. 08/19/16 10:15 labs are back. They reveal a total white count of 9.10 with 83% neutrophils and no bands hemoglobin is low at 9.3 characteristic of his chronic renal insufficiency. Hematocrit is 29.0 MCV is elevated at 98. Bull[place] 149,000. Coags are normal. Sodium 142 potassium is elevated at 5.5 but on looking back he usually is in this range. Chloride is 111 bicarbonate is 17. Anion gap is elevated at 19.5 a metabolic acidosis due to renal insufficiency. BUN is 71 creatinine is 5.4 and this is his normal. Glucose was 110 calcium low at 7.2. He needs them also low at 1.3. Alkaline phosphatase but mildly elevated 173 BNP elevated at 543. The right facial droop is secondary to tumor within the right parotid gland likely invading or compressing the right facial nerve. Therefore he is unlikely to get better. I will place him on a calcium and magnesium supplement-- CalMag 600mg po od. Departure - Departure Time of Disposition: 10:16 Disposition: Home, Self-Care 01 Condition: fair Clinical Impression: Cranial nerve VII palsy, Hypomagnesemia, Hypocalcemia - Discharge Information Instructions: Hypomagnesemia, Hypocalcemia, Adult Referrals: Herman Monroe MD [Primary Care Provider] - Forms: ED Department Discharge Additional Instructions: Evaluation in the emergency room today in regards to right facial droop due to weakness of the right facial muscles with sparing of the ocular muscles indicates that the seventh cranial nerve that supplies the muscles of the right side of the face is being compressed or invaded by the tumor in her right parotid gland. Therefore the right facial weakness is unlikely to improve. He did discuss with oncologist about whether or not radiotherapy to this area would be of some benefit. The only other findings in your lab work that were atypical was that your serum calcium and magnesium levels are bit on the low side. I would recommend picking up a calcium magnesium supplement called Gerson mag 600 mg tablet once daily to improve her magnesium and calcium levels. This is an [id number] medication. Follow up with her personal care physician next week if available. Right facial weakness is unlikely to improve because of the tumor invading the seventh cranial nerve. - My Orders Last 24 Hours: My Active Orders 08/19/16 09:12 EKG Documentation Completion [RC] STAT - Assessment/Plan Last 24 Hours: My Active Orders 08/19/16 09:12 EKG Documentation Completion [RC] STAT
--- NOTE | 2016-08-19 09:28 | CT ---
Head CT Technique: Multiple axial sections through the brain were obtained. Intravenous contrast was not utilized. Comparison: Previous head CT exam of 10/24/15. Findings: Ventricles along with basal cisterns and sulci over convexities are mildly prominent. Minimal diminished density is noted within the periventricular white matter compatible with small vessel ischemic demyelination change. No other abnormal parenchymal densities are appreciated. No evidence of intracranial hemorrhage. No midline shift or mass effect is seen. Bone window settings were reviewed which shows atherosclerotic change within the carotid siphon. Minimal areas of mucosal thickening are seen within the ethmoid sinuses and right frontal sinus which is felt to be incidental. Mastoid sinuses and middle ear cavities are clear. No acute calvarial abnormality is appreciated. Impression: 1. Sinus findings which are incidental. 2. Mild senescent change as described above. 3. No acute intracranial abnormality is identified on noncontrast head CT study. No significant change is seen from previous head CT exam. Diagnostic code #2
[2016-08-19 10:28] VITALS: BP 166/66
== END 2016-08-19 10:35 | disposition home or self-care (01) ==
LOC: JD.ED 08:59
DX: G51.0 Bell's palsy (principal); E83.42 Hypomagnesemia; E83.51 Hypocalcemia; E11.22 Type 2 diabetes mellitus with diabetic chronic kidney disease; I12.9 Hypertensive chronic kidney disease with stage 1 through stage 4 chronic kidney disease, or unspecified chronic kidney disease; N18.9 Chronic kidney disease, unspecified; E78.00 Pure hypercholesterolemia, unspecified; I25.2 Old myocardial infarction; K21.9 Gastro-esophageal reflux disease without esophagitis; Z88.8 Allergy status to other drugs, medicaments and biological substances; Z79.82 Long term (current) use of aspirin; Z79.899 Other long term (current) drug therapy; Z98.890 Other specified postprocedural states; Z87.891 Personal history of nicotine dependence
CPT/HCPCS: 36415; 70450; 70450-26; 80053; 83735; 83880; 84484; 85025; 85610; 85730; 86140; 93005; 99284; 99285-25

== ENCOUNTER 2016-10-15 03:27 | Emergency (ER) | payer MEDICARE, OTHER ==
[2016-10-15 03:40] VITALS: BP 155/67
[2016-10-15] MEDS ORDERED: HYDROmorphone 1 MG/ML Syringe IVPUSH ONE (03:54)
[2016-10-15] MEDS ORDERED: Ondansetron 4 MG/2 ML SDV IVPUSH ONE (03:54)
[2016-10-15] MEDS ORDERED: Sodium Chloride 0.9% 1,000 ML IV SCH (04:00)
--- NOTE | 2016-10-15 04:00 | EDM.PDOC ---
ED HPI GENERAL MEDICAL PROBLEM - General Chief Complaint: Gastrointestinal Problem Stated Complaint: NOT EATING Time Seen by Provider: 10/15/16 03:53 Source of Information: Reports: Patient, Family (spouse and daughter) History Limitations: Reports: Physical Impairment (swelling Rt face and neck -- dysartric.) - History of Present Illness INITIAL COMMENTS - FREE TEXT/NARRATIVE: 86-year-old male is brought to the ED per family members due to severe pain in the right side of his neck and oropharynx. 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 This was confirmed by biopsy. Subsequent subsequently he has been receiving chemotherapy intravenously and radiotherapy. His chemotherapy is due to be done on MondayOctober 17. Radiotherapy is to continue until 26 October. Agent has not been able to eat or drink much of anything for the last for 5 days. Is in severe pain right throat and neck. Appreciates coughing and spitting up blood intermittently. Can' t breathe through his nose due to being occluded with blood clot. No thickened swelling of his right alicia-face and neck secondary to cancer and radiotherapy. There is evidence of radiation whyte to the right lateral neck ear and face. Patient is so weak that if he tries to stand he almost falls over backwards. Having increased pain in his right hip as well. He does have oxycodone 10/325 mg tablets for pain relief but he can't swallow them. States she's having diarrhea as well. 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 Has radiation-induced skin breakdown of right lateral neck and oral ulceration from radiotherapy.). Denies: Activity, Exercise, Lifting, Sick Contact, Trauma Associated Symptoms: Reports: Malaise, Nausea/Vomiting, Weakness (Nausea without vomiting severe generalized weakness Walk on his own.). 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 (see below) (Has pain medication and other meds but he can't swallow them.) Right Neck Pain Score (Numeric/FACES): 7 - Related Data Allergies Allergy/AdvReac Type Severity Reaction Status Date / Time ramipril [From Altace] Allergy Cannot Verified 10/15/16 03:57 Remember ticagrelor [From BRILINTA] Allergy Chest Verified 10/15/16 03:57 Tightness Home Meds: Home Meds Isosorbide Mononitrate [Isosorbide Mononitrate ER] 60 mg PO DAILY 09/02/15 [ History] Metoprolol Succinate [Toprol XL] 25 mg PO DAILY 09/02/15 [History] Pravastatin Sodium [Pravachol] 20 mg PO BEDTIME 09/02/15 [History] oxyCODONE HCl/Acetaminophen [Percocet 10-325 mg Tablet] 1 - 2 each PO Q4H PRN # 36 tablet 09/02/15 [Rx] Apixaban [Eliquis] 2.5 mg PO DAILY 10/11/15 [History] Aspirin [Halfprin] 81 mg PO DAILY 10/11/15 [History] FLUoxetine [PROzac] 20 mg PO DAILY 10/11/15 [History] Nitroglycerin 0.4 mg PO BID PRN 10/11/15 [History] amLODIPine [Norvasc] 5 mg PO DAILY 10/11/15 [History] Albuterol/Ipratropium [DuoNeb 3.0-0.5 MG/3 ML] 1 inhalation INH Q4H PRN [History] Past Medical History HEENT History: Reports: Hard of Hearing Other HEENT History: Wears hearing aids Cardiovascular History: Reports: High Cholesterol, Hypertension, [place] Respiratory History: Reports: Bronchitis, Recurrent, COPD, Sleep Apnea Other Respiratory History: Wears CPAP at night Gastrointestinal History: Reports: GERD Genitourinary History: Reports: BPH, Chronic Renal Insuffiency Other Genitourinary History: 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 Musculoskeletal History: Reports: Osteoarthritis Endocrine/Metabolic History: Reports: Diabetes, Type II (He has lost 21 pounds of weight in the last month. They have taken him off his glipizide because his blood sugars have improved dramatically.) Hematologic History: Reports: Iron Deficiency Oncologic (Cancer) History: 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, Renal, Squamous Cell Carcinoma ( Right submandibular gland diagnosed within the last 6 weeks. Rarely receiving radiotherapy and chemotherapy for this.) - Infectious Disease History Infectious Disease History: Reports: Chicken Pox - Past Surgical History HEENT Surgical History: Reports: Cataract Surgery, Tonsillectomy Cardiovascular Surgical History: Reports: Coronary Artery Stent GI Surgical History: 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, Colostomy, Hernia, Abdominal Neurological Surgical History: Reports: Lumbar Spine Musculoskeletal Surgical History: Reports: Knee Replacement, Shoulder Surgery Social & Family History - Family History Family Medical History: Noncontributory - Tobacco Use Smoking Status *Q: Former Smoker Years of Tobacco use: 30 Packs/Tins Daily: 1 Used Tobacco, but Quit: Yes Month Tobacco Last Used: unknown Second Hand Smoke Exposure: No - Caffeine Use Caffeine Use: Reports: Coffee, Soda - Recreational Drug Use Recreational Drug Use: No - Living Situation & Occupation Living situation: Reports: , with Spouse Occupation: Retired [employer] [facility] - Review of Systems Review Of Systems: See Below Constitutional: Reports: Malaise, Weakness, Fatigue, Decreased Appetite (Unable to eat because he eats too painful to swallow.), Weight Loss. Denies: Fever, Chills HEENT: Reports: Hearing Loss (Bilateral chronically.), Nosebleed (Nosebleeds and runs down the back of his throat.), Nose Pain (Nose pain and no fullness. Bleeding intermittently from nose.) Respiratory: Reports: Shortness of Breath. Denies: Wheezing, Pleuritic Chest Pain, Cough, Sputum, Hemoptysis, Other Cardiovascular: Reports: Blood Pressure Problem, Dyspnea on Exertion ( Chronically in his lower extremities chronically.), Edema, Lightheadedness, Orthopnea. Denies: Chest Pain, Claudication (Chronic hypertension) Endocrine: Reports: Fatigue GI/Abdominal: Reports: Diarrhea (Stools are loose chronically.) : Reports: Frequency, Other (Nocturia 3. Frequency has decreased recently and urine is very dark and sara in color.) Musculoskeletal: Reports: Back Pain, Leg Pain (Right hip pain.) Skin: Reports: Rash (Radiation-induced necrosis of the right side of his neck particularly in the neck crease. Skin is broken down and losing serous material. The entire right alicia-face is erythematous and swollen from radiotherapy.) Neurological: Reports: Difficulty Walking, Weakness (Severe), Change in Speech ( severedysarthric because of pain in his mouth and tongue from ) Hematologic/Lymphatic: Reports: Easy Bleeding (Is on a Eliquis. ) ED EXAM, GI/ABD - Physical Exam Exam: See Below Exam Limited By: Physical Impairment (Patient if he appears very ill. He is severely dehydrated. He has dysarthric speech due to severe pain with movement of his tongue marked swelling of the right alicia-face.) General Appearance: Lethargic, Moderate Distress (In obvious pain.) Eyes: Bilateral: Normal Appearance Ears: Other (Right ear pinna is showing scabbing and deformity from radiation to the right side of his neck.) Nose: Other (Doses occluded with dried blood bilaterally. He can't breathe through his nose at this time. Lots are worse on the right as compared to the left.) Throat/Mouth: Inflammation (Right side of throat and neck.), Other (Patient's tongue appears swollen. There is blood clots within the soft palate and posterior oropharynx that appear to be coming down from the nasopharynx. There is thickening of the mucosa of the right buccal mucosa and oropharynx on the right side.) Head: Atraumatic, Normocephalic Neck: Limited Range of Motion, Other (Patient's right side of his alicia-face and neck are erythematous and swollen. Extremely tender in the distribution of the right submandibular gland. Skin breakdown over the neck from radiotherapy with superficial ulceration in the neck folds.) Respiratory/Chest: Respiratory Distress (Ketones on his breath.), Decreased Breath Sounds. No: Rales (Breath sounds are mildly diminished to the lower 20% of lung vital but lungs are clear.), Rhonchi, Wheezing Cardiovascular: Regular Rate, Rhythm, Tachycardia (Monitor shows sinus rhythm) GI/Abdominal: Normal Bowel Sounds, Soft, Non-Tender, No Organomegaly, Hyperactive Bowel Sounds, Other Back Exam: Normal Inspection, Decreased Range of Motion. No: Full Range of Motion, CVA Tenderness (L), CVA Tenderness (R) Extremities: Other (Tenderness on movement of the right hip either internal or external rotation. Evidence of osteoarthritic changes in both knees.). No: Normal Range of Motion Neurological: Alert, Oriented, Normal Cognition, Other (Dysarthric due to severe pain with trying to talk and move his tongue.). No: CN II-XII Intact, Normal Gait (Cannot walk on his own.) Psychiatric: Flat Affect Skin Exam: Warm, Dry, Other (Result suffering radiation-induced necrosis of the skin of the right lateral neck particularly in the neck folds or creases. Areas erythematous but not actively infected.). 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 There is also Q-wave in V1. Near Q-wave in V2 V3 compatible with possible old anteroseptal myocardial infarction. Bundle branch block pattern) ST-T: Other (T-wave inversion in 1 and aVL cannot rule out ischemia in the lateral wall.) Course - Vital Signs Last Recorded V/S: Last Vital Signs Temp 37.3 C 10/15/16 03:36 Pulse 124 H 10/15/16 03:36 Resp 22 H 10/15/16 03:36 BP 155/67 H 10/15/16 03:36 Pulse Ox 95 10/15/16 03:36 - Orders/Labs/Meds Orders: Active Orders 24 hr Category Date Time Status EKG Documentation Completion [RC] STAT Care 10/15/16 04:00 Active ABO/RH TYPE [BBK] Stat Lab 10/15/16 03:36 Results CULTURE BLOOD [BC] Stat Lab 10/15/16 04:57 Received CULTURE BLOOD [BC] Stat Lab 10/15/16 05:05 Received PATIENT RETYPE [BBK] Stat Lab 10/15/16 03:36 Results URIC ACID [CHEM] Stat Lab 10/15/16 03:36 Received URINALYSIS W/MICROSCOPIC [UA W/MICROSCOPIC] [URIN] Stat Lab 10/15/16 04:28 Uncollected Magnesium Sulfate/Water [Magnesium Sulfate 2 GM in Med 10/15/16 06:15 Active Water 50 ML] 2 gm Premix Bag 1 bag IV Q1H Sodium Chloride 0.9% [Normal Saline] 1,000 ml Med 10/15/16 04:00 Active IV ASDIRECTED Blood Culture x2 Reflex Set [OM.PC] Stat Oth 10/15/16 04:28 Ordered Medication Orders Sodium Chloride (Normal Saline) 1,000 mls @ 999 mls/hr IV ASDIRECTED STACEY Last Admin: 10/15/16 04:03 Dose: 999 mls/hr Magnesium Sulfate 2 gm/ Premix 50 mls @ 25 mls/hr IV Q1H STACEY Stop: 10/15/16 08:14 Labs: Laboratory Tests 10/15/16 10/15/16 10/15/16 Range/Units 03:36 03:36 03:36 WBC 1.95 L* (4.23-9.07) K/mm3 RBC 2.53 L (4.63-6.08) M/mm3 Hgb 8.1 L (13.7-17.5) gm/L Hct 25.5 L (40.1-51.0) % MCV 100.8 H (79.0-92.2) fl MCH 32.0 (25.7-32.2) pg MCHC 31.8 L (32.2-35.5) g/dl RDW Std Deviation 49.7 H (35.1-43.9) fL Plt Count 117 L (163-337) K/mm3 MPV 9.9 (9.4-12.3) fl Neutrophils % (Manual) 87 H (40-60) % Band Neutrophils % 2 (0-10) % Lymphocytes % (Manual) 10 L (20-40) % Atypical Lymphs % 0 % Monocytes % (Manual) 1 L (2-10) % Eosinophils % (Manual) 0 L (0.8-7.0) % Basophils % (Manual) 0 L (0.2-1.2) Toxic Granulation 1+ slight Platelet Estimate Decreased Plt Morphology Comment Normal Polychromasia 1+ slight Hypochromasia 1+ slight Poikilocytosis 1+ slight Anisocytosis 2+ moderate Microcytosis 1+ slight Macrocytosis 2+ moderate Tear Drop Cells 1+ slight Ovalocytes 1+ slight RBC Morph Comment Abnormal Sodium 139 (136-145) mEq/L Potassium 6.5 H* (3.5-5.1) mEq/L Chloride 109 H (98-107) mEq/L Carbon Dioxide 13 L (21-32) mEq/L Anion Gap 23.5 H (5-15) BUN 78 H (7-18) mg/dL Creatinine 7.8 H (0.7-1.3) mg/dL Est Cr Clr Drug Dosing 7.05 mL/min Estimated GFR (MDRD) 7 (>60) mL/min BUN/Creatinine Ratio 10.0 L (14-18) Glucose 146 H (83-115) mg/dL Lactic Acid (0.4-2.0) mmol/L Calcium 7.5 L (8.5-10.1) mg/dL Magnesium 1.3 L (1.8-2.4) mg/dl Total Bilirubin 0.3 (0.2-1.0) mg/dL AST 9 L (15-37) U/L ALT 13 L (16-63) U/L Alkaline Phosphatase 131 H (46-116) U/L CK-MB (CK-2) (0-3.6) ng/ml Troponin I (0.00-0.056) ng/mL C-Reactive Protein 11.5 H* (<1.0) mg/dL B-Natriuretic Peptide (0-100) pg/mL Total Protein 7.0 (6.4-8.2) g/dl Albumin 2.8 L (3.4-5.0) g/dl Globulin 4.2 gm/dL Albumin/Globulin Ratio 0.7 L (1-2) Ketones 1.88 (0.0-0.3) mM Blood Type 10/15/16 10/15/16 10/15/16 Range/Units 03:36 03:36 03:36 WBC (4.23-9.07) K/mm3 RBC (4.63-6.08) M/mm3 Hgb (13.7-17.5) gm/L Hct (40.1-51.0) % MCV (79.0-92.2) fl MCH (25.7-32.2) pg MCHC (32.2-35.5) g/dl RDW Std Deviation (35.1-43.9) fL Plt Count (163-337) K/mm3 MPV (9.4-12.3) fl Neutrophils % (Manual) (40-60) % Band Neutrophils % (0-10) % Lymphocytes % (Manual) (20-40) % Atypical Lymphs % % Monocytes % (Manual) (2-10) % Eosinophils % (Manual) (0.8-7.0) % Basophils % (Manual) (0.2-1.2) Toxic Granulation Platelet Estimate Plt Morphology Comment Polychromasia Hypochromasia Poikilocytosis Anisocytosis Microcytosis Macrocytosis Tear Drop Cells Ovalocytes RBC Morph Comment Sodium (136-145) mEq/L Potassium (3.5-5.1) mEq/L Chloride (98-107) mEq/L Carbon Dioxide (21-32) mEq/L Anion Gap (5-15) BUN (7-18) mg/dL Creatinine (0.7-1.3) mg/dL Est Cr Clr Drug Dosing mL/min Estimated GFR (MDRD) (>60) mL/min BUN/Creatinine Ratio (14-18) Glucose (83-115) mg/dL Lactic Acid (0.4-2.0) mmol/L Calcium (8.5-10.1) mg/dL Magnesium (1.8-2.4) mg/dl Total Bilirubin (0.2-1.0) mg/dL AST (15-37) U/L ALT (16-63) U/L Alkaline Phosphatase (46-116) U/L CK-MB (CK-2) 1.3 (0-3.6) ng/ml Troponin I < 0.017 (0.00-0.056) ng/mL C-Reactive Protein (<1.0) mg/dL B-Natriuretic Peptide 519 H (0-100) pg/mL Total Protein (6.4-8.2) g/dl Albumin (3.4-5.0) g/dl Globulin gm/dL Albumin/Globulin Ratio (1-2) Ketones (0.0-0.3) mM Blood Type A POSITIVE 10/15/16 Range/Units 04:57 WBC (4.23-9.07) K/mm3 RBC (4.63-6.08) M/mm3 Hgb (13.7-17.5) gm/L Hct (40.1-51.0) % MCV (79.0-92.2) fl MCH (25.7-32.2) pg MCHC (32.2-35.5) g/dl RDW Std Deviation (35.1-43.9) fL Plt Count (163-337) K/mm3 MPV (9.4-12.3) fl Neutrophils % (Manual) (40-60) % Band Neutrophils % (0-10) % Lymphocytes % (Manual) (20-40) % Atypical Lymphs % % Monocytes % (Manual) (2-10) % Eosinophils % (Manual) (0.8-7.0) % Basophils % (Manual) (0.2-1.2) Toxic Granulation Platelet Estimate Plt Morphology Comment Polychromasia Hypochromasia Poikilocytosis Anisocytosis Microcytosis Macrocytosis Tear Drop Cells Ovalocytes RBC Morph Comment Sodium (136-145) mEq/L Potassium (3.5-5.1) mEq/L Chloride (98-107) mEq/L Carbon Dioxide (21-32) mEq/L Anion Gap (5-15) BUN (7-18) mg/dL Creatinine (0.7-1.3) mg/dL Est Cr Clr Drug Dosing mL/min Estimated GFR (MDRD) (>60) mL/min BUN/Creatinine Ratio (14-18) Glucose (83-115) mg/dL Lactic Acid 0.4 (0.4-2.0) mmol/L Calcium (8.5-10.1) mg/dL Magnesium (1.8-2.4) mg/dl Total Bilirubin (0.2-1.0) mg/dL AST (15-37) U/L ALT (16-63) U/L Alkaline Phosphatase (46-116) U/L CK-MB (CK-2) (0-3.6) ng/ml Troponin I (0.00-0.056) ng/mL C-Reactive Protein (<1.0) mg/dL B-Natriuretic Peptide (0-100) pg/mL Total Protein (6.4-8.2) g/dl Albumin (3.4-5.0) g/dl Globulin gm/dL Albumin/Globulin Ratio (1-2) Ketones (0.0-0.3) mM Blood Type Meds: Medications Generic Name Dose Route Start Last Admin Trade Name Freq PRN Reason Stop Dose Admin Sodium Chloride 1,000 mls @ 999 mls/hr 10/15/16 04:00 10/15/16 04:03 Normal Saline IV 999 mls/hr ASDIRECTED STACEY Administration Magnesium Sulfate 2 gm/ Premix 50 mls @ 25 mls/hr 10/15/16 06:15 IV 10/15/16 08:14 Q1H STACEY Discontinued Medications Generic Name Dose Route Start Last Admin Trade Name Elle PRN Reason Stop Dose Admin Calcium Gluconate 1 gm 10/15/16 04:55 10/15/16 05:17 Calcium Gluconate IVPUSH 10/15/16 04:56 1 gm ONETIME ONE Administration Dextrose/Water 50 ml 10/15/16 04:55 10/15/16 05:11 Dextrose 50% In Water IVPUSH 10/15/16 04:56 50 ml ONETIME ONE Administration Furosemide 40 mg 10/15/16 05:45 10/15/16 06:10 Lasix IVPUSH 10/15/16 05:46 40 mg NOW ONE Administration Hydromorphone HCl 1 mg 10/15/16 03:54 10/15/16 04:06 Dilaudid IVPUSH 10/15/16 03:55 1 mg ONETIME ONE Administration Levofloxacin/Dextrose 500 mg/ 100 mls @ 100 mls/hr 10/15/16 05:07 10/15/16 05 :29 Premix IV 10/15/16 06:06 100 mls/hr ONETIME ONE Administration Insulin Human Regular 10 unit 10/15/16 04:54 10/15/16 05:06 Humulin R IVPUSH 10/15/16 04:55 10 units ONETIME ONE Administration Protocol Ondansetron HCl 4 mg 10/15/16 03:54 10/15/16 04:04 Zofran IVPUSH 10/15/16 03:55 4 mg ONETIME ONE Administration Silver Sulfadiazine 10 gm 10/15/16 04:01 10/15/16 04:20 Silvadene 1% Cream 50 Gm TOP 10/15/16 04:02 10 gm ONETIME ONE Administration - Radiology Interpretation Free Text/Narrative:: 86-year-old gentleman arrives in the ED with severe oropharyngeal pain. Patient has primary squamous cell carcinoma in the right submandibular gland confirmed by biopsy. Is receiving chemotherapy and radiotherapy at this time. He is suffering radiation-induced injury to the right lateral alicia-face neck involving the oropharynx and tongue and nose. Unable to eat or drink due to severe pain with swallowing . This spread smells strongly of ketones. Resting heart rate is 128/min .He is severely volume depleted at this time. Plan IV normal saline at open. Routine labs to include serum ketones and an ECG. Given Dilaudid 1 mg IV with Zofran 4 mg IV for pain and nausea relief. Patient likely needs to be on a fentanyl patch since he can no longer swallow tablets. Diabetic medications were recently discontinued because of blood sugars falling due to 20+ pound weight loss in the last 6 weeks. Will require admission to hospital for rehydration and pain management. He is scheduled for chemotherapy and radiotherapy on Monday , October 17 in [place]. - Re-Assessments/Exams Free Text/Narrative Re-Assessment/Exam: 10/15/16 04:47 ECG is abnormal due to no well discerned P waves. Appears to be an ectopic regular tachycardia at 1 15/m. There are Q waves in lead V1 near Q waves in V2 V3 possible old anteroseptal myocardial infarction. There is left ventricular hypertrophy pattern with strain there is a left bundle branch block pattern. 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 T-wave inversion in leads 1 and aVL cannot rule out lateral wall ischemia. Left axis deviation of -54. Abnormal ECG. I will add cardiac markers to his lab work. On recheck his temperature is 99.1. White blood cell count is reported to be 1.95 by a neutropenic from chemotherapy. 10/15/16 04:56 labs are starting to come back. White count is 1.95 . Platelets are 117,000. Chem ketones are 1.88. Hemoglobin is low at 8.1 MCV is 100.8 no doubt due to chronic renal insufficiency. Differential on the white count is 87 % neutrophils and 2% bands. 10/15/16 05:45 BNP is reported out at 519. I will give Lasix 40 mg IV as he is volume depleted but metabolic acidosis primarily due to renal failure. With one kidney it's debatable how much diuresis he may achieve with Lasix. Patient needs bedside dialysis to survive. Lactic acid was 0.4. Troponin is less than 0.017. 10/15/16 06:12 I have spoken with all source collection manager hospitalist- Dr. Anaya at [facility] in [place] and he is accepted care although he will be going off shift. He will relay the information to the oncoming hospitalist. They will call if they have any questions. Our next ambulance staff should be ready shortly as they change shift at 0600 hrs. He will be transferred by ground ambulance as soon as possible. Family members made aware that he is critically ill and he may not survive this current bout of illness. They seem to understand the grqavity of the situation. . Departure - Departure Time of Disposition: 06:14 Disposition: DC/Tfer to [facility] 02 Condition: Critical Clinical Impression: Hypomagnesemia, Hypocalcemia, Hyperkalemia, Chronic renal insufficiency, stage V, Leukopenia due to antineoplastic chemotherapy, Squamous cell carcinoma, Fever and neutropenia, Volume depletion, Metabolic acidosis, Diarrhea Anemia aplastic aregenerative Qualifiers: Bone marrow failure anemia type: pancytopenia, antineoplastic chemotherapy- induced Qualified Code(s): D61.810 - Antineoplastic chemotherapy induced pancytopenia CHF (congestive heart failure) Qualifiers: Congestive heart failure chronicity: acute on chronic - Discharge Information Referrals: Herman Monroe MD [Primary Care Provider] - Forms: ED Department Discharge - My Orders Last 24 Hours: My Active Orders 10/15/16 03:36 ABO/RH TYPE [BBK] Stat PATIENT RETYPE [BBK] Stat URIC ACID [CHEM] Stat 10/15/16 04:00 EKG Documentation Completion [RC] STAT Sodium Chloride 0.9% [Normal Saline] 1,000 ml IV ASDIRECTED 10/15/16 04:28 URINALYSIS W/MICROSCOPIC [UA W/MICROSCOPIC] [URIN] Stat Blood Culture x2 Reflex Set [OM.PC] Stat 10/15/16 04:57 CULTURE BLOOD [BC] Stat 10/15/16 05:05 CULTURE BLOOD [BC] Stat 10/15/16 06:15 Magnesium Sulfate/Water [Magnesium Sulfate 2 GM in Water 50 ML] 2 gm Premix Bag 1 bag IV Q1H - Assessment/Plan Last 24 Hours: My Active Orders 10/15/16 03:36 ABO/RH TYPE [BBK] Stat PATIENT RETYPE [BBK] Stat URIC ACID [CHEM] Stat 10/15/16 04:00 EKG Documentation Completion [RC] STAT Sodium Chloride 0.9% [Normal Saline] 1,000 ml IV ASDIRECTED 10/15/16 04:28 URINALYSIS W/MICROSCOPIC [UA W/MICROSCOPIC] [URIN] Stat Blood Culture x2 Reflex Set [OM.PC] Stat 10/15/16 04:57 CULTURE BLOOD [BC] Stat 10/15/16 05:05 CULTURE BLOOD [BC] Stat 10/15/16 06:15 Magnesium Sulfate/Water [Magnesium Sulfate 2 GM in Water 50 ML] 2 gm Premix Bag 1 bag IV Q1H
[2016-10-15] MEDS ORDERED: Silver Sulfadiazine 1% Crm 50 GM Tube TOP ONE (04:01)
[2016-10-15] MEDS ORDERED: Insulin Regular, Human 100 Units/ML 3 ML Vial IVPUSH ONE (04:54)
[2016-10-15] MEDS ORDERED: Calcium Gluconate 10% 1 GM/10 ML SDV IVPUSH ONE (04:55)
[2016-10-15] MEDS ORDERED: 50% Dextrose in Water 50 ML Syringe IVPUSH ONE (04:55)
[2016-10-15] MEDS ORDERED: Levofloxacin/Dextrose 5%-Water 500 MG in Premix Bag 1 BAG IV ONE (05:07)
[2016-10-15] MEDS ORDERED: Furosemide 40 MG/4 ML VIAL IVPUSH ONE (05:45)
[2016-10-15] MEDS ORDERED: Magnesium Sulfate/Water 2 GM in Premix Bag 1 BAG IV SCH ×2 (06:15→06:18)
== END 2016-10-15 06:34 ==
LOC: JD.ED 03:27
DX: I13.2 Hypertensive heart and chronic kidney disease with heart failure and with stage 5 chronic kidney disease, or end stage renal disease (principal); I50.9 Heart failure, unspecified; N18.5 Chronic kidney disease, stage 5; D61.810 Antineoplastic chemotherapy induced pancytopenia; E87.5 Hyperkalemia; E83.51 Hypocalcemia; E83.42 Hypomagnesemia; D00.00 Carcinoma in situ of oral cavity, unspecified site; E86.9 Volume depletion, unspecified; E87.2 Acidosis; E78.00 Pure hypercholesterolemia, unspecified; I25.2 Old myocardial infarction; K21.9 Gastro-esophageal reflux disease without esophagitis; E11.9 Type 2 diabetes mellitus without complications; M19.90 Unspecified osteoarthritis, unspecified site; Z88.8 Allergy status to other drugs, medicaments and biological substances; Z98.890 Other specified postprocedural states; Z96.659 Presence of unspecified artificial knee joint; Z87.891 Personal history of nicotine dependence; W19.XXXA Unspecified fall, initial encounter
CPT/HCPCS: 36415; 80053; 82009; 82553; 83605; 83735; 83880; 84484; 84550; 85025; 86140; 86900; 86901; 87040; 93005; 96361; 96365; 96374; 96375; 99285; A9270; J0610; J1170; J1817; J1940; J1956; J2405; J7040; J7060; J3475

== ENCOUNTER 2017-01-06 02:05 | Emergency (ER) | payer MEDICARE, OTHER ==
[2017-01-06 02:18] VITALS: BP 181/146
[2017-01-06] MEDS ORDERED: Albuterol/Ipratropium 3.0-0.5 MG/3 ML Neb Soln NEB ONE (02:35)
[2017-01-06] MEDS ORDERED: Furosemide 40 MG/4 ML VIAL IVPUSH ONE (02:38)
--- NOTE | 2017-01-06 02:43 | EDM.PDOC ---
ED HPI GENERAL MEDICAL PROBLEM - General Chief Complaint: Respiratory Problem Stated Complaint: POSSIBLE HEART ATTACK Time Seen by Provider: 01/06/17 02:14 Source of Information: Reports: Patient, Family (), Old Records, RN Notes Reviewed History Limitations: Reports: No Limitations - History of Present Illness INITIAL COMMENTS - FREE TEXT/NARRATIVE: The patient states that he woke around 20:00 to go to the bathroom, but that walking the short distance to his bathroom caused him to have severe shortness of breath. He also had some diaphoresis. He denies having chest pain, palpitations, or nausea. He states that he is orthopneic if supine, but that he feels all right if he is upright and not moving around. He acknowledges that he is feeling anxious. The patient has a history of COPD, and has oxygen at home, but states that he rarely uses it. He checks his oxygen saturation once or twice a day, and states that it is usually around 95%. Tonight, however, it was 85%, therefore he put himself on 3 L of oxygen per nasal cannula. The patient's states that he has required supplemental oxygen more than usual, recently. No recent lower extremity edema. No recent cough or fever. The patient states that he has not had similar symptoms previously, and specifically states that his symptoms are different from when he had a [place] in 1997. The patient is a history of obstructive sleep apnea, on CPAP 18, which he states he is compliant with. The patient states that he had his right SI joint injected with steroids on 01/03/2017. The patient's PCP is Dr. Monroe. - Related Data Allergies Allergy/AdvReac Type Severity Reaction Status Date / Time ticagrelor [From [facility]] Allergy Shortness Verified 01/06/17 02:36 of Breath ramipril [From Altace] AdvReac Cough Verified 01/06/17 02:36 Home Meds: Home Meds Isosorbide Mononitrate [Isosorbide Mononitrate ER] 60 mg PO DAILY 09/02/15 [ History] Metoprolol Succinate [Toprol XL] 25 mg PO DAILY 09/02/15 [History] Pravastatin Sodium [Pravachol] 20 mg PO BEDTIME 09/02/15 [History] Aspirin [Halfprin] 81 mg PO DAILY 10/11/15 [History] FLUoxetine [PROzac] 20 - 40 mg PO DAILY 10/11/15 [History] amLODIPine [Norvasc] 5 mg PO DAILY 10/11/15 [History] Omeprazole 20 mg PO DAILY 12/06/16 [History] Sennosides/Docusate Sodium [Senna S Tablet] 1 tab PO DAILY 12/06/16 [History] Sevelamer Carbonate [Renvela] 800 mg PO TIDMEALS 12/06/16 [History] Silver Sulfadiazine [Silvadene 1% Cream 20 GM] 20 gm TOP BID 12/06/16 [History] oxyCODONE HCl/Acetaminophen [Percocet 10-325 mg Tablet] 1 - 2 each PO Q4H PRN [History] Albuterol/Ipratropium [DuoNeb 3.0-0.5 MG/3 ML] 1 unit INH QID 01/06/17 [History] Polyethylene Glycol 3350 [MiraLAX] 17 gm PO DAILY 01/06/17 [History] Past Medical History HEENT History: Reports: Hard of Hearing Other HEENT History: Wears hearing aids, wears dentures Cardiovascular History: Reports: CAD, High Cholesterol, Hypertension, [place] Respiratory History: Reports: COPD, Sleep Apnea (CPAP 18) Gastrointestinal History: Reports: GERD Genitourinary History: Reports: BPH, Chronic Renal Insuffiency, Other (See Below ) (Solitary left kidney following right nephrectomy) Musculoskeletal History: Reports: Arthritis Psychiatric History: Reports: Depression Endocrine/Metabolic History: Reports: Diabetes, Type II, Obesity/BMI 30+ Hematologic History: Reports: Blood Transfusion(s), Iron Deficiency Oncologic (Cancer) History: 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, Renal, Squamous Cell Carcinoma - Infectious Disease History Infectious Disease History: Reports: Chicken Pox - Past Surgical History HEENT Surgical History: Reports: Cataract Surgery, Tonsillectomy Cardiovascular Surgical History: Reports: Coronary Artery Stent (x 4) GI Surgical History: 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 (Hemicolectomy), Colostomy (reversed), Hernia, Abdominal Male Surgical History: Reports: Nephrectomy (right) Neurological Surgical History: Reports: Lumbar Spine (x 2) Musculoskeletal Surgical History: Reports: Knee Replacement (right), Shoulder Surgery (bilateral rotator cuff) Social & Family History - Family History Family Medical History: Noncontributory - Tobacco Use Smoking Status *Q: Former Smoker Years of Tobacco use: 30 Packs/Tins Daily: 1 Used Tobacco, but Quit: Yes Month Tobacco Last Used: 1990 Second Hand Smoke Exposure: No - Caffeine Use Caffeine Use: Reports: Coffee, Soda - Recreational Drug Use Recreational Drug Use: No - Living Situation & Occupation Living situation: Reports: , with Spouse Occupation: Retired ED ROS GENERAL - Review of Systems Review Of Systems: See Below Constitutional: Reports: No Symptoms HEENT: Reports: No Symptoms Respiratory: Reports: No Symptoms Cardiovascular: Reports: No Symptoms Endocrine: Reports: No Symptoms GI/Abdominal: Reports: No Symptoms : Reports: No Symptoms Musculoskeletal: Reports: No Symptoms Skin: Reports: No Symptoms Neurological: Reports: No Symptoms Psychiatric: Reports: No Symptoms Hematologic/Lymphatic: Reports: No Symptoms Immunologic: Reports: No Symptoms ED EXAM, GENERAL - Physical Exam Exam: See Below Exam Limited By: No Limitations General Appearance: Alert, WD/WN, No Apparent Distress Eye Exam: Bilateral Eye: Normal Inspection Ears: Normal External Exam, Hearing Grossly Normal Nose: Normal Inspection, No Blood Throat/Mouth: Normal Inspection, Normal Lips, Normal Voice, No Airway Compromise Head: Atraumatic, Normocephalic Neck: Normal Inspection, Full Range of Motion Respiratory/Chest: No Accessory Muscle Use, Decreased Breath Sounds, Crackles ( bibasilar), Wheezing (expiratory), Prolonged Expiration. No: Rhonchi Cardiovascular: Normal Peripheral Pulses, Regular Rate, Rhythm, No Edema, No Gallop, No JVD, No Murmur, No Rub Peripheral Pulses: 4+: Radial (L), Radial (R) GI/Abdominal: Normal Bowel Sounds, Soft, Non-Tender, No Organomegaly, No Distention, No Abnormal Bruit, No Mass, Other (Well-healed midline scar) (Male) Exam: Deferred Rectal (Males) Exam: Deferred Back Exam: Normal Inspection, Full Range of Motion, NT Extremities: Normal Inspection, Normal Range of Motion, Non-Tender, Normal Capillary Refill, No Pedal Edema Neurological: Alert, Oriented, Normal Cognition, No Motor/Sensory Deficits Psychiatric: Normal Affect Skin Exam: Warm, Dry, Intact, Normal Color, No Rash Lymphatic: No Adenopathy EKG INTERPRETATION EKG Date: 01/06/17 Time: 02:09 Rhythm: NSR Rate (Beats/Min): 81 [place]: Normal P-Wave: Present QRS: Other (Nonspecific intraventricular conduction delay) ST-T: Normal QT: Normal Comparison: Change From Previous EKG (Different from ECG 10/15/2016, with LBBB. Similar to ECG 08/19/2016.) Course - Vital Signs Last Recorded V/S: Last Vital Signs Temp 36.2 C 01/06/17 02:14 Pulse 79 01/06/17 02:14 Resp 22 H 01/06/17 02:14 BP 181/146 H 01/06/17 02:14 Pulse Ox 93 L 01/06/17 02:36 - Orders/Labs/Meds Orders: Active Orders 24 hr Category Date Time Status RT Aerosol Therapy [RC] ASDIRECTED Care 01/06/17 02:36 Active Chest 2V [CR] Stat Exams 01/06/17 02:34 Taken CULTURE BLOOD [BC] Stat Lab 01/06/17 02:55 Received CULTURE BLOOD [BC] Stat Lab 01/06/17 03:05 Received Azithromycin [Zithromax] 500 mg Med 01/06/17 03:35 Active Sodium Chloride 0.9% [Normal Saline] 250 ml IV ONETIME Blood Culture x2 Reflex Set [OM.PC] Stat Oth 01/06/17 02:34 Ordered EKG 12 Lead [EK] Stat Ther 01/06/17 02:12 Ordered Medication Orders Azithromycin 500 mg/ Sodium (Chloride) 250 mls @ 250 mls/hr IV ONETIME ONE Stop: 01/06/17 04:34 Labs: Laboratory Tests 01/06/17 01/06/17 01/06/17 Range/Units 02:20 02:20 02:20 WBC 13.23 H (4.23-9.07) K/mm3 RBC 2.60 L (4.63-6.08) M/mm3 Hgb 8.3 L (13.7-17.5) gm/L Hct 24.9 L (40.1-51.0) % MCV 95.8 H (79.0-92.2) fl MCH 31.9 (25.7-32.2) pg MCHC 33.3 (32.2-35.5) g/dl RDW Std Deviation 52.6 H (35.1-43.9) fL Plt Count 183 (163-337) K/mm3 MPV 10.3 (9.4-12.3) fl Neutrophils % (Manual) 84 H (40-60) % Band Neutrophils % 0 (0-10) % Lymphocytes % (Manual) 13 L (20-40) % Monocytes % (Manual) 3 (2-10) % Eosinophils % (Manual) 0 L (0.8-7.0) % Basophils % (Manual) 0 L (0.2-1.2) Platelet Estimate Adequate Polychromasia 1+ slight Poikilocytosis 1+ slight Anisocytosis 1+ slight RBC Morph Comment Not Reportable PT 10.3 (8.0-13.0) SECONDS INR 0.95 APTT 28 (22-36) SECONDS D-Dimer, Quantitative 6.75 H (0.19-0.59) mg/L Puncture Site ABG pH (7.35-7.45) ABG pCO2 (35.0-45.0) mmHg ABG pO2 (80.0-100.0) mmHg ABG HCO3 (22.0-26.0) meq/L ABG O2 Saturation (96.0-97.0) % ABG Base Excess (-2-2.0) A-a Gradient mmHg O2 Delivery Device Oxygen Flow Rate FiO2 (21.00-100.00) % Sodium 140 (136-145) mEq/L Potassium 5.1 (3.5-5.1) mEq/L Chloride 108 H (98-107) mEq/L Carbon Dioxide 16 L (21-32) mEq/L Anion Gap 21.1 H (5-15) BUN 95 H (7-18) mg/dL Creatinine 7.5 H (0.7-1.3) mg/dL Est Cr Clr Drug Dosing 7.33 mL/min Estimated GFR (MDRD) 7 (>60) mL/min BUN/Creatinine Ratio 12.7 L (14-18) Glucose 141 H (83-115) mg/dL Lactic Acid (0.4-2.0) mmol/L Calcium 7.1 L (8.5-10.1) mg/dL Total Bilirubin 0.4 (0.2-1.0) mg/dL AST 49 H (15-37) U/L ALT 91 H (16-63) U/L Alkaline Phosphatase 203 H (46-116) U/L Troponin I 0.022 (0.00-0.056) ng/mL NT-Pro-B Natriuret Pep 42777 H (0-450) pg/mL Total Protein 7.3 (6.4-8.2) g/dl Albumin 3.0 L (3.4-5.0) g/dl Globulin 4.3 gm/dL Albumin/Globulin Ratio 0.7 L (1-2) 01/06/17 01/06/17 Range/Units 02:34 03:05 WBC (4.23-9.07) K/mm3 RBC (4.63-6.08) M/mm3 Hgb (13.7-17.5) gm/L Hct (40.1-51.0) % MCV (79.0-92.2) fl MCH (25.7-32.2) pg MCHC (32.2-35.5) g/dl RDW Std Deviation (35.1-43.9) fL Plt Count (163-337) K/mm3 MPV (9.4-12.3) fl Neutrophils % (Manual) (40-60) % Band Neutrophils % (0-10) % Lymphocytes % (Manual) (20-40) % Monocytes % (Manual) (2-10) % Eosinophils % (Manual) (0.8-7.0) % Basophils % (Manual) (0.2-1.2) Platelet Estimate Polychromasia Poikilocytosis Anisocytosis RBC Morph Comment PT (8.0-13.0) SECONDS INR APTT (22-36) SECONDS D-Dimer, Quantitative (0.19-0.59) mg/L Puncture Site Rt radial ABG pH 7.27 L (7.35-7.45) ABG pCO2 27.0 L (35.0-45.0) mmHg ABG pO2 60.0 L (80.0-100.0) mmHg ABG HCO3 12.0 L (22.0-26.0) meq/L ABG O2 Saturation 88.5 L (96.0-97.0) % ABG Base Excess -13.5 L (-2-2.0) A-a Gradient 111 mmHg O2 Delivery Device Nasal cannula Oxygen Flow Rate 3.0 FiO2 0.00 L (21.00-100.00) % Sodium (136-145) mEq/L Potassium (3.5-5.1) mEq/L Chloride (98-107) mEq/L Carbon Dioxide (21-32) mEq/L Anion Gap (5-15) BUN (7-18) mg/dL Creatinine (0.7-1.3) mg/dL Est Cr Clr Drug Dosing mL/min Estimated GFR (MDRD) (>60) mL/min BUN/Creatinine Ratio (14-18) Glucose (83-115) mg/dL Lactic Acid 1.2 (0.4-2.0) mmol/L Calcium (8.5-10.1) mg/dL Total Bilirubin (0.2-1.0) mg/dL AST (15-37) U/L ALT (16-63) U/L Alkaline Phosphatase (46-116) U/L Troponin I (0.00-0.056) ng/mL NT-Pro-B Natriuret Pep (0-450) pg/mL Total Protein (6.4-8.2) g/dl Albumin (3.4-5.0) g/dl Globulin gm/dL Albumin/Globulin Ratio (1-2) Meds: Medications Generic Name Dose Route Start Last Admin Trade Name Igorq PRN Reason Stop Dose Admin Azithromycin 500 mg/ Sodium 250 mls @ 250 mls/hr 01/06/17 03:35 Chloride IV 01/06/17 04:34 ONETIME ONE Discontinued Medications Generic Name Dose Route Start Last Admin Trade Name Elle PRN Reason Stop Dose Admin Albuterol/Ipratropium 3 ml 01/06/17 02:35 01/06/17 02:57 Duoneb 3.0-0.5 Mg/3 Ml NEB 01/06/17 02:36 3 ml ONETIME ONE Administration Enoxaparin Sodium 100 mg 01/06/17 03:18 01/06/17 03:26 Lovenox SUBCUT 01/06/17 03:19 100 mg ONETIME ONE Administration Furosemide 40 mg 01/06/17 02:38 01/06/17 02:45 Lasix IVPUSH 01/06/17 02:39 40 mg NOW ONE Administration Ceftriaxone Sodium 1 gm/ 100 mls @ 200 mls/hr 01/06/17 03:34 01/06/17 03:51 Sodium Chloride IV 01/06/17 04:03 200 mls/hr ONETIME ONE Administration - Re-Assessments/Exams Free Text/Narrative Re-Assessment/Exam: 01/06/17 03:14 The patient's D-dimer has returned substantially elevated at 6.75, however, while we do not have the patient's chemistry panel from today, he has a history of a solitary kidney, following a right nephrectomy for renal cell carcinoma, and advanced chronic kidney disease, with a BUN/Cr of 78/7.8 on 10/15/2016. This could be the cause of the patient's elevated D-dimer. While the patient is not yet on hemodialysis, iodinated contrast could push him over the edge. On balance , I feel it would be safer to treat patient for a possible pulmonary embolus with an anticoagulant at this time as opposed to performing a pulmonary angiogram. I will order Lovenox. 01/06/17 03:31 Two-view chest radiograph reviewed. Cardiac silhouette is within normal limits. There appears to be modest pulmonary vascular congestion. No pleural effusions. There is a left upper lobe infiltrate. No pneumothorax. Formal read per the Radiologist pending. 01/06/17 03:36 As above, the patient's chest radiograph indicates a left upper lobe infiltrate , although clinically, the patient denies recent cough or fever. He does have a mildly elevated WBC count of 13.23, although 0% bandemia. Blood cultures have been obtained, and I will start the patient on empiric Rocephin and azithromycin. Neither antibiotic requires renal dosing. Elevated creatinine is not, by itself, an indication for hemodialysis, however, fluid overload, hyperkalemia, or acidosis are. The patient may have some fluid overload; his BNP is substantially elevated at 25,308, he is hypoxemic, and he appears to have some pulmonary vascular congestion on his chest radiograph, although his elevated BNP may be solely due to his renal failure. He is not hyperkalemic, however, as above, he is acidotic. Acute hemodialysis is therefore indicated for this patient. He will need to be transferred to [facility]. He has been given 40 mg IV Lasix, although it is not clear if he will diurese with this. 01/06/17 03:50 Test results discussed with the patient and his . The patient states that his Nephrology [employer]PER[employer], Ms. Elam, is out of [facility]. The patient is agreeable to transferring to [facility]. 01/06/17 04:[address] Suazo, Hospitalist at [facility], at 04:00. He accepts the patient for transfer. Departure - Departure Time of Disposition: 04:07 Disposition: DC/Tfer to [facility] Condition: Serious Clinical Impression: Chronic renal failure, Non-cardiogenic pulmonary edema, High anion gap metabolic acidosis, Left upper lobe consolidation - Discharge Information - My Orders Last 24 Hours: My Active Orders 01/06/17 02:12 EKG 12 Lead [EK] Stat 01/06/17 02:34 Chest 2V [CR] Stat Blood Culture x2 Reflex Set [OM.PC] Stat 01/06/17 02:36 RT Aerosol Therapy [RC] ASDIRECTED 01/06/17 02:55 CULTURE BLOOD [BC] Stat 01/06/17 03:05 CULTURE BLOOD [BC] Stat 01/06/17 03:35 Azithromycin [Zithromax] 500 mg Sodium Chloride 0.9% [Normal Saline] 250 ml IV ONETIME - Assessment/Plan Last 24 Hours: My Active Orders 01/06/17 02:12 EKG 12 Lead [EK] Stat 01/06/17 02:34 Chest 2V [CR] Stat Blood Culture x2 Reflex Set [OM.PC] Stat 01/06/17 02:36 RT Aerosol Therapy [RC] ASDIRECTED 01/06/17 02:55 CULTURE BLOOD [BC] Stat 01/06/17 03:05 CULTURE BLOOD [BC] Stat 01/06/17 03:35 Azithromycin [Zithromax] 500 mg Sodium Chloride 0.9% [Normal Saline] 250 ml IV ONETIME
[2017-01-06] MEDS ORDERED: Enoxaparin 100 MG/1 ML Syringe SUBCUT ONE (03:18)
[2017-01-06] MEDS ORDERED: cefTRIAXone 1 GM in Sodium Chloride 0.9% 100 ML IV ONE (03:34)
[2017-01-06] MEDS ORDERED: Azithromycin 500 MG in Sodium Chloride 0.9% 250 ML IV ONE (03:35)
--- NOTE | 2017-01-06 07:44 | CR ---
Chest: Two views of the chest were obtained. Comparison: Previous chest x-ray of 06/11/16. Diffuse increased density seen within the left upper and left lower lung as well as increased right-sided perihilar densities. Heart size appears within normal limits. Upper mediastinum is normal. Bony structures appear within normal limits for the patient's age. Impression: 1. Diffuse increased density worse within the left chest as described above. Findings presumably represent multifocal pneumonia. Diagnostic code #3
== END 2017-01-06 04:38 ==
LOC: JD.ED 02:05
DX: J18.1 Lobar pneumonia, unspecified organism (principal); J81.1 Chronic pulmonary edema; E87.2 Acidosis; N18.9 Chronic kidney disease, unspecified; I12.9 Hypertensive chronic kidney disease with stage 1 through stage 4 chronic kidney disease, or unspecified chronic kidney disease; I25.10 Atherosclerotic heart disease of native coronary artery without angina pectoris; E78.00 Pure hypercholesterolemia, unspecified; I25.2 Old myocardial infarction; J44.9 Chronic obstructive pulmonary disease, unspecified; K21.9 Gastro-esophageal reflux disease without esophagitis; E11.22 Type 2 diabetes mellitus with diabetic chronic kidney disease; E66.9 Obesity, unspecified; Z88.8 Allergy status to other drugs, medicaments and biological substances; Z79.899 Other long term (current) drug therapy; Z87.891 Personal history of nicotine dependence; Z68.32 Body mass index [BMI] 32.0-32.9, adult
CPT/HCPCS: 36415; 36600; 71020; 80053; 82803; 83605; 83880; 84484; 85025; 85379; 85610; 85730; 87040; 87186; 93005; 94640; 96365; 96372; 96375; 99285; J0456; J0696; J1650; J1940; J7030; J7050; 87077

== ENCOUNTER 2017-01-14 00:55 | Emergency (ER) | payer MEDICARE, OTHER ==
[2017-01-14 01:04] VITALS: BP 169/78
--- NOTE | 2017-01-14 01:53 | EDM.PDOC ---
ED HPI GENERAL MEDICAL PROBLEM - General Chief Complaint: Respiratory Problem Stated Complaint: TROUBLE BREATHING Time Seen by Provider: 01/14/17 01:00 Source of Information: Reports: Patient History Limitations: Reports: No Limitations - History of Present Illness INITIAL COMMENTS - FREE TEXT/NARRATIVE: This is an 86-year-old male. He was in the hospital at [place] for pneumonia and released last week. He states he's been doing fine until this morning when his breathing got worse. He does use an oxygen concentrator at 2 L/ m but it didn't seem to work today so he comes to the ER this evening for evaluation. His pulse ox on room air was 84%. We put him on 4 L/m and his oxygen jumped up to 92-93%. He states he feels like he is breathing well now. He has a history of chronic renal insufficiency stage IV and they were going to place him on dialysis but then they talked him out of it. He has a history of congestive heart failure with low magnesium low calcium and elevated potassium. He's got anemia of chronic disease as well as leukopenia. 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 He did receive a course of chemotherapy and radiation but according to the son they stopped all of that. The patient has not had any significant cough denies any recent fever or chills. He's had no swelling in his lower extremities. He did have some nausea and vomiting yesterday after eating but none since that time and none now. He denies any cough presently. The patient is a DNR. - Related Data Allergies Allergy/AdvReac Type Severity Reaction Status Date / Time ticagrelor [From [facility]] Allergy Shortness Verified 01/06/17 02:36 of Breath ramipril [From Altace] AdvReac Cough Verified 01/06/17 02:36 Home Meds: Home Meds Isosorbide Mononitrate [Isosorbide Mononitrate ER] 60 mg PO DAILY 09/02/15 [ History] Metoprolol Succinate [Toprol XL] 25 mg PO DAILY 09/02/15 [History] Pravastatin Sodium [Pravachol] 20 mg PO BEDTIME 09/02/15 [History] Aspirin [Halfprin] 81 mg PO DAILY 10/11/15 [History] FLUoxetine [PROzac] 20 - 40 mg PO DAILY 10/11/15 [History] amLODIPine [Norvasc] 5 mg PO DAILY 10/11/15 [History] Omeprazole 20 mg PO DAILY 12/06/16 [History] Sennosides/Docusate Sodium [Senna S Tablet] 1 tab PO DAILY 12/06/16 [History] Sevelamer Carbonate [Renvela] 800 mg PO TIDMEALS 12/06/16 [History] Silver Sulfadiazine [Silvadene 1% Cream 20 GM] 20 gm TOP BID 12/06/16 [History] oxyCODONE HCl/Acetaminophen [Percocet 10-325 mg Tablet] 1 - 2 each PO Q4H PRN [History] Albuterol/Ipratropium [DuoNeb 3.0-0.5 MG/3 ML] 1 unit INH QID 01/06/17 [History] Polyethylene Glycol 3350 [MiraLAX] 17 gm PO DAILY 01/06/17 [History] Azithromycin [Zithromax] 250 mg PO DAILY #7 tablet 01/14/17 [Rx] Furosemide [Lasix] 20 mg PO DAILY #30 tablet 01/14/17 [Rx] LORazepam [Ativan] 0.5 mg PO Q8H PRN #20 tablet 01/14/17 [Rx] Levothyroxine [Synthroid] 50 mcg PO ACBREAKFAST 01/14/17 [History] [place]-3S/DHA/Epa/Fish Oil/D3 [[place]-3 + D Softgel] 1 tab PO DAILY 01/14/17 [ History] Sodium Bicarbonate 650 mg PO BID 01/14/17 [History] Past Medical History HEENT History: Reports: Hard of Hearing Other HEENT History: Wears hearing aids, wears dentures Cardiovascular History: Reports: CAD, High Cholesterol, Hypertension, [place] Respiratory History: Reports: COPD, Sleep Apnea Other Respiratory History: Wears CPAP at night Gastrointestinal History: Reports: GERD Genitourinary History: Reports: BPH, Chronic Renal Insuffiency, Other (See Below ) Other Genitourinary History: 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 Musculoskeletal History: Reports: Arthritis Psychiatric History: Reports: Depression Endocrine/Metabolic History: Reports: Diabetes, Type II, Obesity/BMI 30+ Hematologic History: Reports: Blood Transfusion(s), Iron Deficiency Oncologic (Cancer) History: 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, Renal, Squamous Cell Carcinoma - Infectious Disease History Infectious Disease History: Reports: Chicken Pox - Past Surgical History HEENT Surgical History: Reports: Cataract Surgery, Tonsillectomy Cardiovascular Surgical History: Reports: Coronary Artery Stent GI Surgical History: 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, Colostomy, Hernia, Abdominal Male Surgical History: Reports: Nephrectomy Neurological Surgical History: Reports: Lumbar Spine Musculoskeletal Surgical History: Reports: Knee Replacement, Shoulder Surgery Social & Family History - Family History Family Medical History: Noncontributory - Tobacco Use Smoking Status *Q: Unknown Ever Smoked Years of Tobacco use: 30 Packs/Tins Daily: 1 Used Tobacco, but Quit: Yes Month Tobacco Last Used: 1990 Second Hand Smoke Exposure: No - Caffeine Use Caffeine Use: Reports: Coffee, Soda - Recreational Drug Use Recreational Drug Use: No - Living Situation & Occupation Living situation: Reports: , with Spouse Occupation: Retired ED ROS GENERAL - Review of Systems Review Of Systems: See Below Constitutional: Reports: Fatigue. Denies: Fever, Chills HEENT: Reports: No Symptoms Respiratory: Reports: Shortness of Breath. Denies: Cough, Hemoptysis Cardiovascular: Reports: No Symptoms Endocrine: Reports: No Symptoms GI/Abdominal: Reports: Nausea, Vomiting. Denies: Abdominal Pain, Diarrhea : Reports: Other (Patient states he does make urine) Musculoskeletal: Reports: Other (Denies any swelling in his lower extremities) Skin: Reports: No Symptoms Neurological: Reports: No Symptoms Psychiatric: Reports: No Symptoms Hematologic/Lymphatic: Reports: Anemia ED EXAM, GENERAL - Physical Exam Exam: See Below Exam Limited By: No Limitations General Appearance: Alert, WD/WN, Mild Distress, Other (The distress appears to be from the shortness of breath) Eye Exam: Bilateral Eye: Normal Inspection (He appears to be slightly jaundiced possibly) Ears: Normal External Exam, Normal Canal, Normal TMs Nose: Normal Inspection Throat/Mouth: Normal Inspection, Other (No teeth) Head: Normocephalic Respiratory/Chest: Crackles, Other (Mild respiratory distress but it resolved and is placed on oxygen) Cardiovascular: Regular Rate, Rhythm GI/Abdominal: Other (Enlarged but not tender, patient sitting up and doesn't really want to lie down for me to examine his abdomen) Back Exam: Decreased Range of Motion Extremities: Other (There is no edema of his lower extremities noted) Neurological: Alert, Oriented, Normal Cognition Psychiatric: Normal Affect, Normal Mood, Other (He was mildly anxious until he got the oxygen) Skin Exam: Warm, Dry Course - Vital Signs Last Recorded V/S: Last Vital Signs Temp 98.5 F 01/14/17 00:58 Pulse 66 01/14/17 01:35 Resp 19 01/14/17 01:35 BP 169/78 H 01/14/17 00:58 Pulse Ox 93 L 01/14/17 01:35 - Orders/Labs/Meds Orders: Active Orders 24 hr Category Date Time Status Chest 2V [CR] Stat Exams 01/14/17 01:24 Taken Labs: Laboratory Tests 01/14/17 01/14/17 Range/Units 01:35 01:35 WBC 11.50 H (4.23-9.07) K/mm3 RBC 2.32 L (4.63-6.08) M/mm3 Hgb 7.5 L (13.7-17.5) gm/L Hct 22.4 L (40.1-51.0) % MCV 96.6 H (79.0-92.2) fl MCH 32.3 H (25.7-32.2) pg MCHC 33.5 (32.2-35.5) g/dl RDW Std Deviation 50.6 H (35.1-43.9) fL Plt Count 126 L (163-337) K/mm3 MPV 9.3 L (9.4-12.3) fl Neut % (Auto) 84.5 H (34.0-67.9) % Lymph % (Auto) 7.4 L (21.8-53.1) % [place] % (Auto) 6.9 (5.3-12.2) % Eos % (Auto) 0.7 L (0.8-7.0) Baso % (Auto) 0.1 (0.1-1.2) % Neut # (Auto) 9.72 H (1.78-5.38) K/mm3 Lymph # (Auto) 0.85 L (1.32-3.57) K/mm3 [place] # (Auto) 0.79 (0.30-0.82) K/mm3 Eos # (Auto) 0.08 (0.04-0.54) K/mm3 Baso # (Auto) 0.01 (0.01-0.08) K/mm3 Manual Slide Review Abnormal smear Sodium 140 (136-145) mEq/L Potassium 5.7 H (3.5-5.1) mEq/L Chloride 106 (98-107) mEq/L Carbon Dioxide 15 L (21-32) mEq/L Anion Gap 24.7 H (5-15) BUN 120 H (7-18) mg/dL Creatinine 7.8 H (0.7-1.3) mg/dL Est Cr Clr Drug Dosing 7.05 mL/min Estimated GFR (MDRD) 7 (>60) mL/min BUN/Creatinine Ratio 15.4 (14-18) Glucose 118 H (83-115) mg/dL Calcium 6.3 L (8.5-10.1) mg/dL Magnesium 1.3 L (1.8-2.4) mg/dl Total Bilirubin 0.4 (0.2-1.0) mg/dL AST 24 (15-37) U/L ALT 36 (16-63) U/L Alkaline Phosphatase 145 H (46-116) U/L NT-Pro-B Natriuret Pep 96337 H (0-450) pg/mL Total Protein 6.3 L (6.4-8.2) g/dl Albumin 2.4 L (3.4-5.0) g/dl Globulin 3.9 gm/dL Albumin/Globulin Ratio 0.6 L (1-2) Meds: Medications Discontinued Medications Generic Name Dose Route Start Last Admin Trade Name Igorq PRN Reason Stop Dose Admin Furosemide 20 mg 01/14/17 02:28 01/14/17 02:36 Lasix PO 01/14/17 02:29 20 mg ONETIME ONE Administration Lorazepam 0.5 mg 01/14/17 01:57 01/14/17 02:01 Ativan PO 01/14/17 01:58 0.5 mg ONETIME ONE Administration - Radiology Interpretation Free Text/Narrative:: Chest x-ray shows a left middle and lower lobe infiltrate which I would believe would be the pneumonia, I suspect his underlying tumor as well noted in the left and right lung vital - Re-Assessments/Exams Free Text/Narrative Re-Assessment/Exam: 01/14/17 02:49 I spoke with the [employer] call [employer] representative who was willing to come to the ER with a larger concentrator and limited to the patient and the family so they can go home this morning. I did speak to the family regarding this will also give him some Ativan for his anxiety spells and also place him on some low-dose Lasix to help him get rid of his fluid better. 01/14/17 03:19 Patient feels comfortable at this time to go home with a new concentrator. Departure - Departure Time of Disposition: 03:03 Disposition: Home, Self-Care 01 Condition: Poor Clinical Impression: Lymphoma involving lung, Hyperkalemia, diminished renal excretion, Hypomagnesemia, Hypocalcemia Pneumonia Qualifiers: Pneumonia type: due to unspecified organism Laterality: left Lung location: lower lobe of lung Qualified Code(s): J18.1 - Lobar pneumonia, unspecified organism Congestive heart failure Qualifiers: Congestive heart failure type: unspecified congestive heart failure type Congestive heart failure chronicity: chronic Qualified Code(s): I50.9 - Heart failure, unspecified - Discharge Information Prescriptions: Azithromycin [Zithromax] 250 mg PO DAILY #7 tablet Furosemide [Lasix] 20 mg PO DAILY #30 tablet LORazepam [Ativan] 0.5 mg PO Q8H PRN #20 tablet PRN Reason: Anxiety Instructions: Heart Failure, Community-Acquired Pneumonia, Adult, [id number] Referrals: Herman Monroe MD [Primary Care Provider] - Forms: ED Department Discharge Additional Instructions: Take the Lasix 20 mg once a day and will help you urinate and get rid of the fluid from the lungs, start back on the Zithromax one tablet a day for the next 7 days, use the Ativan only when needed for anxiety, use the large concentrator as shown by the [employer] person came to the ER, follow-up with your doctor this week for recheck, return to the ER if your symptoms worsen - My Orders Last 24 Hours: My Active Orders 01/14/17 01:24 Chest 2V [CR] Stat - Assessment/Plan Last 24 Hours: My Active Orders 01/14/17 01:24 Chest 2V [CR] Stat
[2017-01-14] MEDS ORDERED: LORazepam 0.5 MG Tab PO ONE (01:57)
[2017-01-14] MEDS ORDERED: Furosemide 20 MG Tab PO ONE (02:28)
--- NOTE | 2017-01-15 20:01 | CR ---
Chest: Two views of the chest were obtained. Comparison: Previous chest x-ray of 01/06/17. Continuing increased density within the left upper and left lower lobe as well as within the right upper lung and additional change within the right lower lung. Heart size appears within normal limits. Upper mediastinum is normal. Bony structures are unremarkable for the patient's age. Impression: 1. Continuing parenchymal densities as described above. Findings are fairly stable from most recent exam of 01/06/17. Findings presumably representing diffuse pneumonia. Diagnostic code #3
== END 2017-01-14 03:28 | disposition home or self-care (01) ==
LOC: JD.ED 00:55 → SUPCPDRO 00:55 → JD.ED 03:28
DX: J18.9 Pneumonia, unspecified organism (principal); I13.0 Hypertensive heart and chronic kidney disease with heart failure and stage 1 through stage 4 chronic kidney disease, or unspecified chronic kidney disease; I50.9 Heart failure, unspecified; N18.9 Chronic kidney disease, unspecified; E83.51 Hypocalcemia; E83.42 Hypomagnesemia; C85.90 Non-Hodgkin lymphoma, unspecified, unspecified site; E87.5 Hyperkalemia; Z88.8 Allergy status to other drugs, medicaments and biological substances; Z79.899 Other long term (current) drug therapy; I25.10 Atherosclerotic heart disease of native coronary artery without angina pectoris; E78.00 Pure hypercholesterolemia, unspecified; I25.2 Old myocardial infarction; J44.9 Chronic obstructive pulmonary disease, unspecified; K21.9 Gastro-esophageal reflux disease without esophagitis; E11.9 Type 2 diabetes mellitus without complications; Z79.82 Long term (current) use of aspirin; Z95.5 Presence of coronary angioplasty implant and graft
CPT/HCPCS: 36415; 71020; 80053; 83735; 83880; 85025; 99285; A9270

== ENCOUNTER 2017-01-17 19:32 | Emergency (ER) | payer MEDICARE, OTHER ==
[2017-01-17 19:46] VITALS: BP 175/101
--- NOTE | 2017-01-17 20:34 | EDM.PDOC ---
ED HPI GENERAL MEDICAL PROBLEM - General Chief Complaint: Respiratory Problem Time Seen by Provider: 01/17/17 19:57 Source of Information: Reports: Patient, Family (), Old Records, RN Notes Reviewed History Limitations: Reports: No Limitations - History of Present Illness INITIAL COMMENTS - FREE TEXT/NARRATIVE: The patient states that he has had dyspnea on exertion and orthopnea ever since returning home from [facility] on 01/10/2017. He states that it has been getting progressively worse. He states that he does not have orthopnea if he is wearing his CPAP. No recent fever, cough, chest pain, or palpitations. The patient states that he thinks he may be slightly wheezing. He had nausea and emesis 2 days ago. The patient's states that he stumbles and falls a lot. He denies lower extremity edema. He has not been taking any home treatments or remedies, other than his usually prescribed medications (which does not include an inhaler or nebulized medication). The patient was seen by me on 01/06/2017 for severe dyspnea on exertion. He was found to have an elevated WBC count of 13.23 with 0% bandemia, a H/H of 8.3/ 24.9 and platelets of 183. His potassium was normal, but his bicarbonate was depressed at 16 with a BUN/Cr of 95/7.5. His BNP was substantially elevated at 25,308 and his D-dimer elevated at 6.75. His troponin was negative. His chest radiograph demonstrated pulmonary vascular congestion with a possible left upper lobe infiltrate. He was started on empiric Rocephin and azithromycin, then transferred to [facility] with anticipation of receiving hemodialysis. The patient states that he was admitted to [facility] through 01/10/2017. The patient's family states that he was treated for pneumonia, diuresed, and given a blood transfusion, however, hemodialysis was not started, nor was any vascular access for hemodialysis placed. The family states that one of the physicians initially recommended hemodialysis, but then another physician came in and said that there was no point in starting hemodialysis, as the patient was not expected to live beyond another few months (due to his head and neck cancer. Apparently the patient received both chemotherapy and radiation therapy for it, but it was discontinued secondary to intolerance). They recommended either hospice or correction placement, however, neither was actually arranged at discharge. When the patient was discharged home, he was prescribed azithromycin 500 mg/day for 2 days, and home oxygen 3.5 to 4 L continuously, however, the patient does not have supplemental oxygen bled into his CPAP at night. Right Arm Pain Score (Numeric/FACES): 5 - Related Data Allergies Allergy/AdvReac Type Severity Reaction Status Date / Time ticagrelor [From BRILINTA] Allergy Shortness Verified 01/06/17 02:36 of Breath ramipril [From Altace] AdvReac Cough Verified 01/06/17 02:36 Home Meds: Home Meds Isosorbide Mononitrate [Isosorbide Mononitrate ER] 60 mg PO DAILY 09/02/15 [ History] Metoprolol Succinate [Toprol XL] 25 mg PO DAILY 09/02/15 [History] Pravastatin Sodium [Pravachol] 20 mg PO BEDTIME 09/02/15 [History] Aspirin [Halfprin] 81 mg PO DAILY 10/11/15 [History] FLUoxetine [PROzac] 20 - 40 mg PO DAILY 10/11/15 [History] amLODIPine [Norvasc] 5 mg PO DAILY 10/11/15 [History] Omeprazole 20 mg PO DAILY 12/06/16 [History] Sennosides/Docusate Sodium [Senna S Tablet] 1 tab PO DAILY 12/06/16 [History] Sevelamer Carbonate [Renvela] 800 mg PO TIDMEALS 12/06/16 [History] Silver Sulfadiazine [Silvadene 1% Cream 20 GM] 20 gm TOP BID 12/06/16 [History] oxyCODONE HCl/Acetaminophen [Percocet 10-325 mg Tablet] 1 - 2 each PO Q4H PRN [History] Albuterol/Ipratropium [DuoNeb 3.0-0.5 MG/3 ML] 1 unit INH QID 01/06/17 [History] Polyethylene Glycol 3350 [MiraLAX] 17 gm PO DAILY 01/06/17 [History] Azithromycin [Zithromax] 250 mg PO DAILY #7 tablet 01/14/17 [Rx] Furosemide [Lasix] 20 mg PO DAILY #30 tablet 01/14/17 [Rx] LORazepam [Ativan] 0.5 mg PO Q8H PRN #20 tablet 01/14/17 [Rx] Levothyroxine [Synthroid] 50 mcg PO ACBREAKFAST 01/14/17 [History] [place]-3S/DHA/Epa/Fish Oil/D3 [[place]-3 + D Softgel] 1 tab PO DAILY 01/14/17 [ History] Sodium Bicarbonate 650 mg PO BID 01/14/17 [History] Past Medical History HEENT History: Reports: Hard of Hearing Other HEENT History: Wears hearing aids, wears dentures Cardiovascular History: Reports: CAD, High Cholesterol, Hypertension, IA Respiratory History: Reports: COPD, Sleep Apnea (CPAP 18 at night) Gastrointestinal History: Reports: GERD Genitourinary History: Reports: BPH, Chronic Renal Insuffiency, Other (See Below ) (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) Musculoskeletal History: Reports: Arthritis Psychiatric History: Reports: Depression Endocrine/Metabolic History: Reports: Diabetes, Type II, Obesity/BMI 30+ Hematologic History: Reports: Anemia, Blood Transfusion(s), Iron Deficiency Oncologic (Cancer) History: 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, Renal, Other (See Below) (Left head & neck cancer) - Infectious Disease History Infectious Disease History: Reports: Chicken Pox - Past Surgical History HEENT Surgical History: Reports: Cataract Surgery, Tonsillectomy Cardiovascular Surgical History: Reports: Coronary Artery Stent (x 4) GI Surgical History: 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 (hemicolectomy), Colostomy (reversed), Hernia, Abdominal Male Surgical History: Reports: Nephrectomy (right) Neurological Surgical History: Reports: Lumbar Spine (x 2) Musculoskeletal Surgical History: Reports: Knee Replacement (right), Shoulder Surgery (bilateral rotator cuff repair) Social & Family History - Family History Family Medical History: Noncontributory - Tobacco Use Smoking Status *Q: Former Smoker Years of Tobacco use: 30 Packs/Tins Daily: 1 Month Tobacco Last Used: Quit 1990 Second Hand Smoke Exposure: No - Caffeine Use Caffeine Use: Reports: Coffee - Alcohol Use Alcohol Use History: No - Recreational Drug Use Recreational Drug Use: No - Living Situation & Occupation Living situation: Reports: , with Spouse Occupation: Retired ED ROS GENERAL - Review of Systems Review Of Systems: See Below Constitutional: Reports: No Symptoms HEENT: Reports: No Symptoms Respiratory: Reports: No Symptoms Cardiovascular: Reports: No Symptoms Endocrine: Reports: No Symptoms GI/Abdominal: Reports: No Symptoms : Reports: No Symptoms Musculoskeletal: Reports: No Symptoms Skin: Reports: No Symptoms Neurological: Reports: No Symptoms Psychiatric: Reports: No Symptoms Hematologic/Lymphatic: Reports: No Symptoms Immunologic: Reports: No Symptoms ED EXAM, GENERAL - Physical Exam Exam: See Below Exam Limited By: No Limitations General Appearance: Alert, WD/WN, Mild Distress (Appears to be dyspneic at rest , although he denies it. He is sitting on the side of the bed, leaning against a table.) Eye Exam: Bilateral Eye: Normal Inspection Ears: Normal External Exam, Hearing Grossly Normal Nose: Normal Inspection, No Blood Throat/Mouth: Normal Voice, No Airway Compromise Head: Atraumatic, Normocephalic Neck: Normal Inspection, Full Range of Motion Respiratory/Chest: No Accessory Muscle Use, Decreased Breath Sounds (Bibasilar) , Crackles (Throughout), Wheezing (Faint, expiratory), Prolonged Expiration. No : Rhonchi Cardiovascular: Normal Peripheral Pulses, Regular Rate, Rhythm, No Gallop, No JVD, No Murmur, No Rub Peripheral Pulses: 4+: Radial (L), Radial (R) GI/Abdominal: Normal Bowel Sounds, Soft, Non-Tender, No Organomegaly, No Distention, No Abnormal Bruit, No Mass (Male) Exam: Deferred Rectal (Males) Exam: Deferred Back Exam: Normal Inspection, Full Range of Motion, NT Extremities: Normal Inspection, Normal Range of Motion, Normal Capillary Refill Neurological: Alert, Oriented, Normal Cognition, No Motor/Sensory Deficits Psychiatric: Normal Affect Skin Exam: Warm, Dry, Intact, Normal Color, No Rash EKG INTERPRETATION EKG Date: 01/17/17 Time: 20:21 Rhythm: NSR Rate (Beats/Min): 72 [place]: LAD-Left [place] Deviation P-Wave: Present (1st degree AVB) QRS: LBBB ST-T: Elevated QT: Prolonged (QTc 535 ms) Comparison: Change From Previous EKG (LBBB new from 01/06/2017, but similar to ) Course - Vital Signs Last Recorded V/S: Last Vital Signs Temp 36.1 C 01/17/17 19:38 Pulse 68 01/17/17 21:05 Resp 30 H 01/17/17 19:38 BP 175/101 H 01/17/17 21:05 Pulse Ox 100 01/17/17 23:47 - Orders/Labs/Meds Orders: Active Orders 24 hr Category Date Time Status BIPAP Adult [RT BiPAP/CPAP] [RC] ASDIRECTED Care 01/17/17 20:29 Active EKG Documentation Completion [RC] STAT Care 01/17/17 20:30 Active RT Aerosol Therapy [RC] ASDIRECTED Care 01/17/17 23:47 Active Chest 1V Frontal [CR] Stat Exams 01/17/17 20:32 Taken Dextrose 10% in Water 500 ml Med 01/17/17 23:00 Active IV ASDIRECTED Insulin Regular, Human [HumuLIN R] 40 unit Med 01/17/17 23:15 Active Dextrose 10% in Water 500 ml IV ASDIRECTED Medication Orders Dextrose/Water (Dextrose 10% In Water) 500 mls @ 500 mls/hr IV ASDIRECTED STACEY Insulin Human Regular 40 unit/ (Dextrose/Water) 500.4 mls @ 500.261 mls/hr IV ASDIRECTED STACEY Last Admin: 01/17/17 23:21 Dose: 500.261 mls/hr Labs: Laboratory Tests 01/17/17 01/17/17 01/17/17 Range/Units 21:20 21:20 21:20 WBC 13.42 H (4.23-9.07) K/mm3 RBC 2.44 L (4.63-6.08) M/mm3 Hgb 7.9 L (13.7-17.5) gm/L Hct 23.8 L (40.1-51.0) % MCV 97.5 H (79.0-92.2) fl MCH 32.4 H (25.7-32.2) pg MCHC 33.2 (32.2-35.5) g/dl RDW Std Deviation 49.5 H (35.1-43.9) fL Plt Count 145 L (163-337) K/mm3 MPV 9.9 (9.4-12.3) fl Neutrophils % (Manual) 85 H (40-60) % Band Neutrophils % 0 (0-10) % Lymphocytes % (Manual) 8 L (20-40) % Atypical Lymphs % 0 % Monocytes % (Manual) 6 (2-10) % Eosinophils % (Manual) 0 L (0.8-7.0) % Basophils % (Manual) 0 L (0.2-1.2) Myelocytes % 1 Platelet Estimate Adequate Plt Morphology Comment Normal Poikilocytosis 1+ slight Anisocytosis 1+ slight RBC Morph Comment Not Reportable PT (8.0-13.0) SECONDS INR APTT (22-36) SECONDS D-Dimer, Quantitative (0.19-0.59) mg/L Sodium 138 (136-145) mEq/L Potassium 7.8 H* (3.5-5.1) mEq/L Chloride 106 (98-107) mEq/L Carbon Dioxide 16 L (21-32) mEq/L Anion Gap 23.8 H (5-15) BUN 110 H (7-18) mg/dL Creatinine 8.0 H (0.7-1.3) mg/dL Est Cr Clr Drug Dosing 6.87 mL/min Estimated GFR (MDRD) 6 (>60) mL/min BUN/Creatinine Ratio 13.8 L (14-18) Glucose 135 H (83-115) mg/dL POC Glucose (83-110) mg/dL Lactic Acid 1.0 (0.4-2.0) mmol/L Calcium 6.6 L (8.5-10.1) mg/dL Total Bilirubin 0.4 (0.2-1.0) mg/dL AST 14 L (15-37) U/L ALT 21 (16-63) U/L Alkaline Phosphatase 139 H (46-116) U/L Troponin I < 0.017 (0.00-0.056) ng/mL NT-Pro-B Natriuret Pep 18456 H (0-450) pg/mL Total Protein 6.6 (6.4-8.2) g/dl Albumin 2.5 L (3.4-5.0) g/dl Globulin 4.1 gm/dL Albumin/Globulin Ratio 0.6 L (1-2) 01/17/17 01/18/17 Range/Units 21:45 00:06 WBC (4.23-9.07) K/mm3 RBC (4.63-6.08) M/mm3 Hgb (13.7-17.5) gm/L Hct (40.1-51.0) % MCV (79.0-92.2) fl MCH (25.7-32.2) pg MCHC (32.2-35.5) g/dl RDW Std Deviation (35.1-43.9) fL Plt Count (163-337) K/mm3 MPV (9.4-12.3) fl Neutrophils % (Manual) (40-60) % Band Neutrophils % (0-10) % Lymphocytes % (Manual) (20-40) % Atypical Lymphs % % Monocytes % (Manual) (2-10) % Eosinophils % (Manual) (0.8-7.0) % Basophils % (Manual) (0.2-1.2) Myelocytes % Platelet Estimate Plt Morphology Comment Poikilocytosis Anisocytosis RBC Morph Comment PT 10.8 (8.0-13.0) SECONDS INR 0.99 APTT 29 (22-36) SECONDS D-Dimer, Quantitative 9.48 H (0.19-0.59) mg/L Sodium (136-145) mEq/L Potassium (3.5-5.1) mEq/L Chloride (98-107) mEq/L Carbon Dioxide (21-32) mEq/L Anion Gap (5-15) BUN (7-18) mg/dL Creatinine (0.7-1.3) mg/dL Est Cr Clr Drug Dosing mL/min Estimated GFR (MDRD) (>60) mL/min BUN/Creatinine Ratio (14-18) Glucose (83-115) mg/dL POC Glucose 202 H (83-110) mg/dL Lactic Acid (0.4-2.0) mmol/L Calcium (8.5-10.1) mg/dL Total Bilirubin (0.2-1.0) mg/dL AST (15-37) U/L ALT (16-63) U/L Alkaline Phosphatase (46-116) U/L Troponin I (0.00-0.056) ng/mL NT-Pro-B Natriuret Pep (0-450) pg/mL Total Protein (6.4-8.2) g/dl Albumin (3.4-5.0) g/dl Globulin gm/dL Albumin/Globulin Ratio (1-2) Meds: Medications Generic Name Dose Route Start Last Admin Trade Name Freq PRN Reason Stop Dose Admin Dextrose/Water 500 mls @ 500 mls/hr 01/17/17 23:00 Dextrose 10% In Water IV ASDIRECTED STACEY Insulin Human Regular 40 unit/ 500.4 mls @ 500.261 mls/hr 01/17/17 23:15 23:21 Dextrose/Water IV 500.261 mls/hr ASDIRECTED STACEY Administration Discontinued Medications Generic Name Dose Route Start Last Admin Trade Name Elle PRN Reason Stop Dose Admin Albuterol 2.5 mg 01/17/17 23:47 01/18/17 00:10 Proventil Neb Soln NEB 01/17/17 23:48 2.5 mg ONETIME ONE Administration Aspirin 243 mg 01/17/17 20:43 01/17/17 21:07 Aspirin PO 01/17/17 20:44 243 mg ONETIME ONE Administration Calcium Gluconate 1 gm 01/17/17 22:13 01/17/17 22:26 Calcium Gluconate IVPUSH 01/17/17 22:14 1 gm ONETIME ONE Administration Furosemide 40 mg 01/17/17 20:35 01/17/17 20:58 Lasix IVPUSH 01/17/17 20:36 40 mg NOW ONE Administration Insulin Human Regular 20 unit/ 500.2 mls @ 500 mls/hr 01/17/17 22:45 Dextrose/Water IV ASDIRECTED [facility] Insulin Human Regular Confirm 01/17/17 22:57 Humulin R Administered 01/17/17 22:58 Dose 300 unit .ROUTE .STK-MED ONE Metoprolol Tartrate 5 mg 01/17/17 20:38 01/17/17 21:05 Lopressor IVPUSH 01/17/17 20:39 5 mg ONETIME ONE Administration Sodium Polystyrene Sulfonate 15 gm 01/17/17 22:36 01/17/17 22:40 Kayexalate PO 01/17/17 22:37 15 gm ONETIME ONE Administration Sodium Polystyrene Sulfonate 15 gm 01/17/17 23:46 01/18/17 00:08 Kayexalate PO 01/17/17 23:47 15 gm ONETIME STA Administration - Re-Assessments/Exams Free Text/Narrative Re-Assessment/Exam: 01/17/17 22:15 Portable chest radiograph reviewed. Cardiac silhouette is at the upper limits of normal. Bilateral pulmonary vascular congestion consistent with decompensated CHF. No pleural effusions noted on this AP view. Focal infiltrate cannot be excluded. No pneumothorax. Formal read per the Radiologist pending. 01/17/17 22:32 The patient's potassium is significantly elevated at 7.84 with a bicarbonate of 16. His BUN/Cr are significantly elevated at 110/8.0. His anion gap is elevated at 23.8, and his calcium depressed at 6.6. As above, his chest radiograph shows pulmonary edema consistent with fluid overload. Clearly, the patient needs emergency hemodialysis. In the meantime, I have ordered 1 g calcium gluconate IVP, Kayexalate 15 g po, and 20 Units of regular insulin in 500 mL D5W, to be given over one hour. Because I'm trying to minimize IV fluid, I did not order alkalinized IV fluid. The patient was given IV Lasix earlier, but I am told that he has only had about 200 mL urine output thus far. The case was discussed with [facility]. Apparently the patient and his talked with the Nephrologists Dr. Dahl and Dr. Sharif on 01/06/2017 , and clearly declined hemodialysis. The patient stated that he wanted symptomatic treatment only. They noted that the patient had a poor prognosis, given his left head and neck cancer, therefore they recommended palliative care. [facility] notes that the patient's CODE STATUS is DNR. I went to discuss this with the patient and his , however, the patient's is not currently present. I am told that she will return shortly. The patient reports that he is quite comfortable on the BiPAP 01/05. 01/17/17 23:21 The above was discussed with the patient, his , and a son at the bedside. The patient's reiterates that she was initially told by one physician that he should have dialysis, but was then talked out of it by a second physician. At this time, both the patient and his state that they would like to have hemodialysis, if available. [facility] is currently busy and will not be available for another 10 minutes. 01/17/17 23:38 Case discussed with the Staff Development Nurse Dr. Dahl at 23:31. He agrees with transferring the patient to the ED for likely hemodialysis. He recommended that I give second dose of Kayexalate 15 g, and start giving the patient an albuterol neb, once per hour. He agreed with not giving bicarbonate. Dr. Roberts, the Emergency Physician at [facility] was notified of the patient transfer, however, he had to go to an emergency. He accepted the patient for transfer at 23:37. 01/18/17 00:53 The ambulance has arrived to take the patient. Departure - Departure Time of Disposition: 23:42 Disposition: DC/Tfer to [facility] 02 Condition: Serious Clinical Impression: End stage renal disease, Non-cardiogenic pulmonary edema, Hyperkalemia, High anion gap metabolic acidosis, Hypoxemia, Left bundle branch block - Discharge Information Referrals: Herman Monroe MD [Primary Care Provider] - - My Orders Last 24 Hours: My Active Orders 01/17/17 20:29 BIPAP Adult [RT BiPAP/CPAP] [RC] ASDIRECTED 01/17/17 20:30 EKG Documentation Completion [RC] STAT 01/17/17 20:32 Chest 1V Frontal [CR] Stat 01/17/17 23:00 Dextrose 10% in Water 500 ml IV ASDIRECTED 01/17/17 23:15 Insulin Regular, Human [HumuLIN R] 40 unit Dextrose 10% in Water 500 ml IV ASDIRECTED 01/17/17 23:47 RT Aerosol Therapy [RC] ASDIRECTED - Assessment/Plan Last 24 Hours: My Active Orders 01/17/17 20:29 BIPAP Adult [RT BiPAP/CPAP] [RC] ASDIRECTED 01/17/17 20:30 EKG Documentation Completion [RC] STAT 01/17/17 20:32 Chest 1V Frontal [CR] Stat 01/17/17 23:00 Dextrose 10% in Water 500 ml IV ASDIRECTED 01/17/17 23:15 Insulin Regular, Human [HumuLIN R] 40 unit Dextrose 10% in Water 500 ml IV ASDIRECTED 01/17/17 23:47 RT Aerosol Therapy [RC] ASDIRECTED
[2017-01-17] MEDS ORDERED: Furosemide 40 MG/4 ML VIAL IVPUSH ONE (20:35)
[2017-01-17] MEDS ORDERED: Metoprolol Tartrate 5 MG/5 ML SDV IVPUSH ONE (20:38)
[2017-01-17] MEDS ORDERED: Aspirin 81 MG Tab.Chew PO ONE (20:43)
[2017-01-17] MEDS ORDERED: Calcium Gluconate 10% 1 GM/10 ML SDV IVPUSH ONE (22:13)
[2017-01-17] MEDS ORDERED: Sodium Polystyrene Sulfonate 15 GM/60 ML Susp 60 ML Bot PO ONE (22:36)
[2017-01-17] MEDS ORDERED: Insulin Regular, Human 20 UNIT in Dextrose 10% in Water 500 ML IV SCH ×2 (22:45)
[2017-01-17] MEDS ORDERED: Insulin Regular, Human 100 Units/ML 3 ML Vial ONE (22:57)
[2017-01-17] MEDS ORDERED: Dextrose 10% in Water 500 ML IV SCH (23:00)
[2017-01-17] MEDS ORDERED: HUMAN IV SCH ×2 (23:15)
[2017-01-17] MEDS ORDERED: WATER IV SCH ×2 (23:15)
[2017-01-17] MEDS ORDERED: INSULIN REGULAR IV SCH ×2 (23:15)
[2017-01-17] MEDS ORDERED: DEXTROSE 10% IV SCH ×2 (23:15)
[2017-01-17] MEDS ORDERED: Sodium Polystyrene Sulfonate 15 GM/60 ML Susp 60 ML Bot PO STA (23:46)
[2017-01-17] MEDS ORDERED: Albuterol 0.083% 2.5 MG/3 ML Neb Soln NEB ONE (23:47)
--- NOTE | 2017-01-18 08:15 | CR ---
Chest: Portable view of the chest was obtained. Comparison: Previous chest x-ray of 01/14/17. Increased density seen diffusely within the left chest and within the upper and lower right lung. These findings are fairly stable from prior exam when allowing for differences in technique. Diffuse pneumonia is possible. Heart appears within normal limits for portable technique. Upper mediastinum is within normal limits for portable technique. Bony structures are osteopenic. Impression: 1. Diffuse increased density within both sides of the chest which remains fairly stable from recent study of 01/14/17. Findings presumably represent diffuse persisting pneumonia. Diagnostic code #3
== END 2017-01-18 01:15 ==
LOC: JD.ED 19:32
DX: I12.0 Hypertensive chronic kidney disease with stage 5 chronic kidney disease or end stage renal disease (principal); N18.6 End stage renal disease; E87.2 Acidosis; E11.22 Type 2 diabetes mellitus with diabetic chronic kidney disease; I44.7 Left bundle-branch block, unspecified; R09.02 Hypoxemia; J81.1 Chronic pulmonary edema; E87.5 Hyperkalemia; I25.10 Atherosclerotic heart disease of native coronary artery without angina pectoris; E78.00 Pure hypercholesterolemia, unspecified; G47.30 Sleep apnea, unspecified; K21.9 Gastro-esophageal reflux disease without esophagitis; C76.0 Malignant neoplasm of head, face and neck; F32.9 Major depressive disorder, single episode, unspecified; E66.9 Obesity, unspecified; Z85.53 Personal history of malignant neoplasm of renal pelvis; Z95.5 Presence of coronary angioplasty implant and graft; Z90.5 Acquired absence of kidney; Z87.891 Personal history of nicotine dependence; Z79.82 Long term (current) use of aspirin; Z79.899 Other long term (current) drug therapy; Z88.8 Allergy status to other drugs, medicaments and biological substances
CPT/HCPCS: 36415; 71010; 80053; 82962; 83605; 83880; 84484; 85025; 85379; 85610; 85730; 93005; 94640; 94660; 96365; 96375; 99285; A9270; J0610; J1940; J3490